=== PATIENT | male | born 1980 | race American Indian/Alaskan Native ===

== ENCOUNTER 2019-08-06 21:52 | Inpatient (IN) | payer OTHER, SELFPAY ==
--- NOTE | 2019-08-06 22:32 | Event Note ---
ED Screening Note Date of service: 08/06/19 Time: 22:30 ED Screening Note: c/o elevated BP due to running out of BP meds x 2.5 weeks denies CP, SOB +BAUMAN This initial assessment/diagnostic orders/clinical plan/treatment(s) is/are subject to change based on patients health status, clinical progression and re- assessment by fellow clinical providers in the ED. Further treatment and workup at subsequent clinical providers discretion. Patient/guardian urged not to elope from the ED as their condition may be serious if not clinically assessed and managed. Initial orders include: home meds
[2019-08-06] MEDS ORDERED: LISINOPRIL 10 MG TAB PO ONE (22:33)
[2019-08-06] MEDS ORDERED: FUROSEMIDE 20 MG TAB PO ONE (22:33)
[2019-08-06] MEDS ORDERED: cloNIDine 0.1 MG TAB PO ONE (22:33)
[2019-08-06] MEDS ORDERED: carvediloL 6.25 MG TAB PO ONE (22:33)
[2019-08-07 00:29] LABS: Basophils # (Auto) 0.1 K/mm3 (0.0-0.1); Basophils % (Auto) 0.8 % (0.0-1.8); Eosinophils # (Auto) 0.2 K/mm3 (0.0-0.4); Eosinophils % (Auto) 1.4 % (0.0-4.3); Hemoglobin 13.9 gm/dl (11.8-15.2); Lymphocytes % (Auto) 23.4 % (13.4-35.0); Mean Corpuscular HGB Conc 34 % (32-34); Mean Corpuscular Volume 86 fl (84-94); Monocytes % (Auto) 7.9 % (0.0-7.3); Platelet Count 158 K/mm3 (140-440); Red Blood Count 4.77 M/mm3 (3.65-5.03); Red Cell Distribution Width 13.7 % (13.2-15.2)
[2019-08-07 00:52] LABS: Calcium 9.3 mg/dL (8.4-10.2)
--- NOTE | 2019-08-07 01:20 | Emergency Department Report ---
ED Headache HPI - General Chief Complaint: High BP Stated Complaint: HIGH BP Time Seen by Provider: 08/06/19 22:29 Source: patient, old records Exam Limitations: no limitations - History of Present Illness Initial Comments: 39-year-old male with a past medical history of hypertension and chronic renal insufficiency presents to the hospital complaining of headache and running out of BP medication. Patient ran out of all his medications the exception of clonidine 2.5 weeks ago due to scheduling issues to see his primary care doctor. Presents to the hospital complaining of 10/10 headache without blurry vision, nausea, vomiting, focal weakness, numbness, or neck pain. He received 1 dose of his scheduled medications in triage and reports his headache is now 3/10 in intensity. Patient has not been here since 2013 as per medical record at that time his kidney function was normal. Patient states he has since been diagnosed with renal insufficiency. His meds include carvedilol, lisinopril, Lasix, Coreg, and vitamin D. Despite being on Lasix 80 mg twice a day patient denies a history of CHF. No chest pain or shortness of breath reported. Allergies/Adverse Reactions: Allergies No Known Allergies Allergy (Unverified 02/19/14 18:08) Home Medications: Ambulatory Orders labetaloL [Labetalol 200mg TAB] 100 mg PO BID #60 tablet 02/20/14 lisinopriL [Zestril TAB] 40 mg PO QDAY #30 tablet 02/20/14 ED Review of Systems ROS: Stated complaint: HIGH BP Other details as noted in HPI Comment: All other systems reviewed and negative ED Past Medical Hx - Past Medical History Previous Medical History?: Yes Hx Hypertension: Yes (Deangelo Malignant HTN) - Surgical History Past Surgical History?: Yes - Social History Smoking Status: Former Smoker - Medications Home Medications: Home Medications Medication Instructions Recorded Confirmed Last Taken Type labetaloL [Labetalol 200mg TAB] 100 mg PO BID #60 tablet 02/20/14 Unknown Rx lisinopriL [Zestril TAB] 40 mg PO QDAY #30 tablet 02/20/14 Unknown Rx ED Physical Exam - General Limitations: No Limitations - Other Other exam information: General: No acute distress Head: Atraumatic Eyes: normal appearance, extraocular movements intact, pupils equal reactive to light ENT: Moist mucous membranes Neck: Normal appearance, no midline tenderness, no nuchal rigidity Chest: Clear to auscultation bilaterally CV: Regular rate and rhythm Abdomen: Soft, normal bowel sounds, nontender, nondistended, no rebound or guarding Back: Normal inspection Extremity: Normal inspection, full range of motion Neuro: Alert O x 3, no facial asymmetry, speech clear, no gross motor sensory deficit, [id number] function intact Psych: Appropriate behavior Skin: No rash ED Course Vital Signs 08/06/19 08/06/19 08/06/19 22:03 22:45 22:46 Temperature 99.0 F Pulse Rate 69 69 69 Respiratory 18 Rate Blood Pressure 249/161 249/161 249/161 Blood Pressure [Left] O2 Sat by Pulse 98 Oximetry 08/07/19 08/07/19 08/07/19 00:45 01:00 01:15 Temperature 97.7 F Pulse Rate 60 58 L 60 Respiratory 19 16 17 Rate Blood Pressure 219/145 220/134 200/133 Blood Pressure 219/45 [Left] O2 Sat by Pulse 95 97 96 Oximetry 08/07/19 08/07/19 08/07/19 01:30 01:45 02:00 Temperature Pulse Rate 53 L 55 L 58 L Respiratory 14 14 14 Rate Blood Pressure 215/131 213/128 193/126 Blood Pressure [Left] O2 Sat by Pulse 97 97 96 Oximetry 08/07/19 08/07/19 08/07/19 02:30 02:48 02:49 Temperature Pulse Rate 58 L 59 L Respiratory 17 18 Rate Blood Pressure 203/134 219/139 Blood Pressure [Left] O2 Sat by Pulse 99 Oximetry 08/07/19 08/07/19 08/07/19 03:00 04:04 04:35 Temperature Pulse Rate 59 L 66 67 Respiratory 14 19 Rate Blood Pressure 183/115 207/133 Blood Pressure 208/132 [Left] O2 Sat by Pulse 99 100 Oximetry ED Medical Decision Making - Lab Data Result diagrams: 08/07/19 00:17 08/07/19 00:17 Lab Results 08/07/19 08/07/19 Range/Units 00:17 00:17 WBC 13.0 H (4.5-11.0) K/mm3 RBC 4.77 (3.65-5.03) M/mm3 Hgb 13.9 (11.8-15.2) gm/dl Hct 41.0 (35.5-45.6) % MCV 86 (84-94) fl MCH 29 (28-32) pg MCHC 34 (32-34) % RDW 13.7 (13.2-15.2) % Plt Count 158 (140-440) K/mm3 Lymph % (Auto) 23.4 (13.4-35.0) % [place] % (Auto) 7.9 H (0.0-7.3) % Eos % (Auto) 1.4 (0.0-4.3) % Baso % (Auto) 0.8 (0.0-1.8) % Lymph # 3.0 (1.2-5.4) K/mm3 [place] # 1.0 H (0.0-0.8) K/mm3 Eos # 0.2 (0.0-0.4) K/mm3 Baso # 0.1 (0.0-0.1) K/mm3 Seg Neutrophils % 66.5 (40.0-70.0) % Seg Neutrophils # 8.6 H (1.8-7.7) K/mm3 Sodium 141 (137-145) mmol/L Potassium 3.8 (3.6-5.0) mmol/L Chloride 101.7 (98-107) mmol/L Carbon Dioxide 26 (22-30) mmol/L Anion Gap 17 mmol/L BUN 25 H (9-20) mg/dL Creatinine 2.4 H (0.8-1.5) mg/dL Estimated GFR 37 ml/min BUN/Creatinine Ratio 10 % Glucose 105 H (75-100) mg/dL Calcium 9.3 (8.4-10.2) mg/dL - Radiology Data Radiology results: report reviewed Examination: CT of the head without contrast Clinical information: Hypertension. Headache. Comparison: None. Technical: Multiple axial CT images of the head were obtained without intravenous contrast. Sagittal and coronal reformats were obtained. All CTs at this facility utilize dose reduction techniques including automated exposure control, iterative reconstruction and weight based dosing when appropriate to reduce patient radiation dose to as low as reasonable achievable. Findings: There is no CT evidence of acute intracranial hemorrhage or large territorial infarct. The ventricular system appears normal in size. No extra-axial fluid collections are identified. Evaluation of the calvarium demonstrates no evidence of acute bony abnormality. There is partial mucosal opacification of the visualized left maxillary sinus. Impression: 1. No CT evidence of acute intracranial process. 2. Partial mucosal opacification of the left maxillary sinus which may suggest sinusitis. - Medical Decision Making Patient was provider or his medications in triage without improvement in his blood pressure (including Lasix 80mg). Patient denies a history of CHF but prescibed a large dose of Lasix twice a day. Patient received additional IV hydralazine with minimal blood pressure improvement. CT head does not show any acute findings. Renal insufficiency noted. Patient states he was told he has renal insufficiency and the past but does not know his baseline kidney function. Last records available for review here or from 2013 which showed normal renal function. Since patient has been in the hospital several hours with poor blood pressure controlled despite by mouth and IV medications he will be admitted to the hospitalist service for further treatment. - Differential Diagnosis hypertensive emergency/urgency Critical Care Time: No Critical care attestation.: If time is entered above; I have spent that time in minutes in the direct care of this critically ill patient, excluding procedure time. ED Disposition Clinical Impression: Hypertensive urgency, Non compliance with medical treatment, Renal insufficiency Disposition: -09 OP ADMIT IP TO THIS HOSP Is pt being admited?: Yes Condition: Stable Time of Disposition: 04:41 (Dr muro/hosp)
[2019-08-07] MEDS ORDERED: hydrALAZINE 20 MG/1 ML INJ IV ONE ×2 (02:08→04:21)
[2019-08-07] MEDS ORDERED: MORPHINE 4 MG/1 ML INJ IV ONE (02:09)
[2019-08-07] MEDS ORDERED: ONDANSETRON 4 MG/2 ML INJ IV ONE (02:09)
--- NOTE | 2019-08-07 02:39 | Cat Scan Report ---
Examination: CT of the head without contrast Clinical information: Hypertension. Headache. Comparison: None. Technical: Multiple axial CT images of the head were obtained without intravenous contrast. Sagittal and coronal reformats were obtained. All CTs at this facility utilize dose reduction techniques inc luding automated exposure control, iterative reconstruction and weight based dosing when appropriate to reduce patient radiation dose to as low as reasonable achievable. Findings: There is no CT evidence of acute intracranial hemorrhage or large territorial infarct. The ventricular system appears normal in size. No extra-axial fluid collections are identified. Evaluation of the calvarium demonstrates no evidence of acute bony abnormality. There is partial muco laure opacification of the visualized left maxillary sinus. Impression: 1. No CT evidence of acute intracranial process. 2. Partial mucosal opacification of the left maxillary sinus which may suggest sinusitis. Signer Name: Sravanthi Hansen MD Signed: 08/07/2019 2:35 AM Workstation Name: [id number]
[2019-08-07] MEDS ORDERED: ONDANSETRON 4 MG/2 ML INJ IV PRN (05:31)
[2019-08-07] MEDS ORDERED: niCARdipine 50 MG in SODIUM CHLORIDE 0.9% 250ML 230 ML IV SCH (05:31)
--- NOTE | 2019-08-07 05:35 | History and Physical Report ---
History of Present Illness Date of admission: 08/07/19 04:41 History of present illness: 39-year-old man with a history of hypertension, chronic kidney disease comes emergency room complaining of headache, occipital, dull, constant, intensity 5- 10, no radiation, cannot identify exacerbating or relieving factors. He checked his blood pressure at home and the machine was reading high, he could not get a reading. He came to the emergency room for further evaluation. States that he has been out of his medication over the last 2 weeks, he was unable to get it refilled because he could not get an appointment with his primary care physician's office. Patient is being admitted for hypertensive urgency Review Of Systems: Constitutional: no weight loss, chills, fever Ears, eyes, nose, mouth and throat: no nasal congestion, no nasal discharge, no sinus pressure, blurry vision, diplopia Neck: No neck pain or rigidity. Cardiovascular: No palpitations, chest pain Respiratory: No cough, shortness of breath Gastrointestinal: No hematochezia, abdominal pain Genitourinary : no dysuria, frequency , hematuria Musculoskeletal: no muscle ache , joint pain Integumentary: no rash, no pruritis Neurological: no parathesias, focal weakness Endocrine: no cold or heat intolerance, no polyuria or polydipsia Hematologic/Lymphatic: no easy bruising, no easy bleeding, no gland swelling Allergic/Immunologic: no urticaria, no angioedema. PAST MEDICAL HISTORY:hypertension, CKD PAST SURGICAL HISTORY:None FAMILY HISTORY:hypertension, diabetes SOCIAL HISTORY: no tobacco, no drugs, alcohol Medications and Allergies Allergies Allergy/AdvReac Type Severity Reaction Status Date / Time No Known Allergies Allergy Unverified 02/19/14 18:08 Home Medications Medication Instructions Recorded Confirmed Last Taken Type labetaloL [Labetalol 200mg TAB] 100 mg PO BID #60 tablet 02/20/14 Unknown Rx lisinopriL [Zestril TAB] 40 mg PO QDAY #30 tablet 02/20/14 Unknown Rx Active Meds: Active Medications Nicardipine HCl 50 mg/ Sodium (Chloride) 250 mls @ 25 mls/hr IV TITR GERBER; Protocol Exam - Physical Exam Narrative exam: Gen. appearance: Patient lying in bed, no apparent distress HEENT: Normocephalic, atraumatic, pupils equally round and reactive to light, extraocular movement intact, and no sclericterus,. No JVD or thyromegaly or nodule,neck supple, no carotid bruit ,mucous membranes moist, no exudate or erythema Heart: S1, S2, regular rate and rhythm Lungs: Clear to auscultation bilaterally, breathing comfortable Abdomen: Positive bowel sounds, nontender, nondistended, no organomegaly Extremity: No edema, cyanosis, clubbing Skin: No rash, nodules, warm, dry Neuro: Oriented 3, cranial nerves II-12 intact, speech is fluent, motor and sensory intact - Constitutional Vitals: Temp Pulse Resp BP Pulse Ox 97.7 F 67 19 207/133 100 08/07/19 00:45 08/07/19 04:35 08/07/19 04:04 08/07/19 04:35 08/07/19 04:04 Results - Labs CBC & Chem 7: 08/07/19 00:17 08/07/19 00:17 Labs: Abnormal lab results 08/07/19 08/07/19 Range/Units 00:17 00:17 WBC 13.0 H (4.5-11.0) K/mm3 [place] % (Auto) 7.9 H (0.0-7.3) % Page # 1.0 H (0.0-0.8) K/mm3 Seg Neutrophils # 8.6 H (1.8-7.7) K/mm3 BUN 25 H (9-20) mg/dL Creatinine 2.4 H (0.8-1.5) mg/dL Glucose 105 H (75-100) mg/dL - Imaging and Cardiology CT Scan - head: report reviewed Assessment and Plan Assessment Hypertensive urgency Blood pressure has been unresponsive to IV medications Start Cardene drip Consult critical care Chronic kidney disease Stable DVT prophylaxis
[2019-08-07] MEDS ORDERED: amLODIPine 10 MG TAB PO ONE (06:11)
[2019-08-07] MEDS ORDERED: amLODIPine 10 MG TAB ONE (06:16)
[2019-08-07] MEDS ORDERED: hydrALAZINE 20 MG/1 ML INJ IV PRN (06:29)
[2019-08-07] MEDS ORDERED: ENOXAPARIN 30 MG/0.3 ML INJ SUB-Q ONE (09:41)
--- NOTE | 2019-08-07 09:56 | Event Note ---
Date: 08/07/19 Admitted this morning for uncontrolled hypertension RN has called me twice regarding downgrading patient because he is only on 5mg/hr Cardene iv drip and bp steady. I ordered UDS, stopped drip, ordered oral imdur and hydralazine po and IV (not indu/arb due to renal dysfunction), ordered iv prn labetalol and he has received catapress and norvasc already.
[2019-08-07] MEDS: hydrALAZINE 25 MG TAB PO SCH ×3 (10:04→21:25)
[2019-08-07] MEDS: ENOXAPARIN 30 MG/0.3 ML INJ SUB-Q SCH (10:04)
[2019-08-07 10:21] LABS: Amphetamine Screen,Urine PRESUMPTIVE NEGATIVE; Benzodiazepines Screen,Urine PRESUMPTIVE NEGATIVE; Cocaine Screen,Urine PRESUMPTIVE NEGATIVE; Methadone Screen,Urine PRESUMPTIVE NEGATIVE
[2019-08-07 10:44] LABS: Cannabinoid Screen,Urine PRESUMPTIVE POSITIVE; Opiate Screen,Urine PRESUMPTIVE POSITIVE
[2019-08-07] MEDS: hydrALAZINE 20 MG/1 ML INJ IV PRN (11:04)
[2019-08-07] MEDS: ACETAMINOPHEN 325 MG TAB PO PRN ×2 (12:31→21:27)
[2019-08-08] MEDS: hydrALAZINE 20 MG/1 ML INJ IV PRN ×2 (04:59→11:49)
[2019-08-08 05:58] LABS: Basophils # (Auto) 0.1 K/mm3 (0.0-0.1); Basophils % (Auto) 0.5 % (0.0-1.8); Eosinophils % (Auto) 0.1 % (0.0-4.3); Hematocrit 44.2 % (35.5-45.6); Hemoglobin 15.1 gm/dl (11.8-15.2); Lymphocytes # (Auto) 2.7 K/mm3 (1.2-5.4); Lymphocytes % (Auto) 15.2 % (13.4-35.0); Mean Corpuscular HGB Conc 34 % (32-34); Mean Corpuscular Volume 84 fl (84-94); Monocytes % (Auto) 5.7 % (0.0-7.3); Platelet Count 199 K/mm3 (140-440); Red Blood Count 5.28 M/mm3 (3.65-5.03); Red Cell Distribution Width 14.2 % (13.2-15.2)
[2019-08-08] MEDS: ACETAMINOPHEN 325 MG TAB PO PRN ×2 (06:15→11:47)
[2019-08-08] MEDS: hydrALAZINE 25 MG TAB PO SCH ×4 (06:16→21:32)
[2019-08-08 06:23] LABS: Calcium 9.5 mg/dL (8.4-10.2)
[2019-08-08] MEDS: ENOXAPARIN 30 MG/0.3 ML INJ SUB-Q SCH (09:21)
[2019-08-08] MEDS: amLODIPine 10 MG TAB PO SCH (10:03)
--- NOTE | 2019-08-08 14:35 | Progress Note ---
Assessment and Plan Assessment and plan: Patient is a 39-year-old man with a history of hypertension, chronic kidney disease stage 3 who presented to [facility] ED with headaches/n/v. He has been out of medication for last 2-3 weeks. Malignant Hypertension: treated with IV Cardene, adjust medication, he was out of his labetalol. He is on clonidine also Intractable N/V: consult GI, treat with iv zofran and iv reglan Hypokalemia: replete cautiously due to ARF ARF/CKD 3, vasomotor nephropathy, poa: consult Nephrology DVT prophylaxis: SCD only, bp too high at the moment History Interval history: Patient was seen and examined. Follow-up on current diagnosis. Overnight uneventful as no events directly reported to me. Patient denies any chest pain, shortness breath, nausea/vomiting or severe headaches. Imaging, nursing note, chart, labs and old chart reviewed. Discussed with patient. Gen: WDWN, NAD, Awake, Alert, Orientated HEENT: NCAT, EOMI, PERRL, OP Clear Neck: supple, no adenopathy, no thyromegaly, no JVD CVS/Heart: RRR, normal S1S2, pulses present bilaterally Chest/Lungs: CTA B, Symmetrical chest expansion, good air entry bilaterally GI/Abdomen: soft, NTND, good bowel sounds, no guarding or rebound /Bladder: no suprapubic tenderness, no CVA or paraspinal tenderness Extermity/Skin: no c/c/e, no obvious rash MSK: FROM x 4 Neuro: CN 2-12 grossly intact, no new focal deficits Psych: calm Hospitalist Physical - Constitutional Vitals: Temp Pulse Resp BP Pulse Ox 98.9 F 73 20 220/157 99 08/08/19 11:22 08/08/19 11:57 08/08/19 11:22 08/08/19 11:57 08/08/19 11:22 Results - Labs CBC & Chem 7: 08/08/19 05:30 08/08/19 05:30 Labs: Laboratory Last Values WBC 17.8 K/mm3 (4.5-11.0) H 08/08/19 05:30 RBC 5.28 M/mm3 (3.65-5.03) H 08/08/19 05:30 Hgb 15.1 gm/dl (11.8-15.2) 08/08/19 05:30 Hct 44.2 % (35.5-45.6) 08/08/19 05:30 MCV 84 fl (84-94) 08/08/19 05:30 MCH 29 pg (28-32) 08/08/19 05:30 MCHC 34 % (32-34) 08/08/19 05:30 RDW 14.2 % (13.2-15.2) 08/08/19 05:30 Plt Count 199 K/mm3 (140-440) 08/08/19 05:30 Lymph % (Auto) 15.2 % (13.4-35.0) 08/08/19 05:30 [place] % (Auto) 5.7 % (0.0-7.3) 08/08/19 05:30 Eos % (Auto) 0.1 % (0.0-4.3) 08/08/19 05:30 Baso % (Auto) 0.5 % (0.0-1.8) 08/08/19 05:30 Lymph # 2.7 K/mm3 (1.2-5.4) 08/08/19 05:30 [place] # 1.0 K/mm3 (0.0-0.8) H 08/08/19 05:30 Eos # 0.0 K/mm3 (0.0-0.4) 08/08/19 05:30 Baso # 0.1 K/mm3 (0.0-0.1) 08/08/19 05:30 Seg Neutrophils % 78.5 % (40.0-70.0) H 08/08/19 05:30 Seg Neutrophils # 14.0 K/mm3 (1.8-7.7) H 08/08/19 05:30 Sodium 140 mmol/L (137-145) 08/08/19 05:30 Potassium 3.2 mmol/L (3.6-5.0) L 08/08/19 05:30 Chloride 100.1 mmol/L (98-107) 08/08/19 05:30 Carbon Dioxide 19 mmol/L (22-30) L D 08/08/19 05:30 Anion Gap 24 mmol/L 08/08/19 05:30 BUN 26 mg/dL (9-20) H 08/08/19 05:30 Creatinine 2.8 mg/dL (0.8-1.5) H 08/08/19 05:30 Estimated GFR 31 ml/min 08/08/19 05:30 BUN/Creatinine Ratio 9 % 08/08/19 05:30 Glucose 113 mg/dL (75-100) H 08/08/19 05:30 Calcium 9.5 mg/dL (8.4-10.2) 08/08/19 05:30 Urine Opiates Screen Presumptive positive 08/07/19 10:06 Urine Methadone Screen Presumptive negative 08/07/19 10:06 Ur Barbiturates Screen Presumptive negative 08/07/19 10:06 Ur Phencyclidine Scrn Presumptive negative 08/07/19 10:06 Ur Amphetamines Screen Presumptive negative 08/07/19 10:06 U Benzodiazepines Scrn Presumptive negative 08/07/19 10:06 Urine Cocaine Screen Presumptive negative 08/07/19 10:06 U Marijuana (THC) Screen Presumptive positive 08/07/19 10:06 Drugs of Abuse Note Disclamer 08/07/19 10:06 Active Medications - Current Medications Current Medications: Generic Name Dose Route Start Last Admin Trade Name Freq PRN Reason Stop Dose Admin Acetaminophen 650 mg 08/07/19 05:31 08/08/19 11:47 Tylenol PO 650 mg Q4H PRN Administration Pain MILD(1-3)/Fever >100.5/BAUMAN Amlodipine Besylate 10 mg 08/08/19 10:00 08/08/19 10:03 Amlodipine PO 10 mg QDAY GERBER Administration Enoxaparin Sodium 30 mg 08/07/19 10:00 08/08/19 09:21 Enoxaparin SUB-Q Not Given QDAY GERBER Hydralazine HCl 10 mg 08/07/19 09:51 08/08/19 11:49 Apresoline IV 10 mg Q4HR PRN Administration Blood Pressure Hydralazine HCl 25 mg 08/07/19 10:00 08/08/19 06:16 Apresoline PO 25 mg Q8HR GERBER Administration Isosorbide Mononitrate 30 mg 08/07/19 12:00 08/08/19 10:01 Imdur PO 30 mg QDAY GERBER Administration Labetalol HCl 100 mg 08/07/19 10:00 08/08/19 10:03 Labetalol PO 100 mg BID GERBER Administration Labetalol HCl 10 mg 08/07/19 09:51 08/08/19 11:57 Labetalol IV 10 mg Q4H PRN Administration Blood Pressure Ondansetron HCl 4 mg 08/07/19 05:31 Zofran IV Q8H PRN Nausea And Vomiting Sodium Chloride 10 ml 08/07/19 10:00 08/08/19 12:00 Sodium Chloride Flush Syringe 10 Ml IV 10 ml BID GERBER Administration Sodium Chloride 10 ml 08/07/19 05:31 Sodium Chloride Flush Syringe 10 Ml IV PRN PRN LINE FLUSH
[2019-08-08] MEDS ORDERED: cloNIDine TTS 0.2 MG/24 HR PATCH TD SCH (14:45)
[2019-08-08] MEDS ORDERED: METOCLOPRAMIDE 10 MG/2 ML INJ IV PRN (14:45)
--- NOTE | 2019-08-08 16:39 | XRay Report ---
CHEST 1 VIEW 08/08/2019 3:09 PM INDICATION / CLINICAL INFORMATION: cough. COMPARISON: 02/19/14 FINDINGS: SUPPORT DEVICES: None. HEART / MEDIASTINUM: No significant abnormality. LUNGS / PLEURA: No significant pulmonary or pleural abnormality. No pneumothorax. ADDITIONAL FINDINGS: No significant additional findings. IMPRESSION: 1. No acute findings. No change. Signer Name: Tone Pablo MD Signed: 08/08/2019 4:34 PM Workstation Name: [id number]
[2019-08-08] MEDS: SPIRONOLACTONE 25 MG TAB PO SCH (16:47)
[2019-08-08] MEDS: cloNIDine 0.1 MG TAB PO SCH ×2 (16:47→22:10)
[2019-08-08] MEDS: PANTOPRAZOLE 40 MG INJ IV SCH (16:48)
[2019-08-08 18:48] LABS: Bilirubin,Urine NEG (Negative); Blood,Urine MOD (Negative); Color,Urine Yellow (Yellow); Urobilinogen,Urine < 2.0 mg/dL (<2.0); WBC,Urine < 1.0 /HPF (0.0-6.0)
[2019-08-08] MEDS: oxyCODONE /ACETAMINOPHEN 5-325MG TAB PO PRN (22:18)
[2019-08-09] MEDS: hydrALAZINE 25 MG TAB PO SCH ×3 (06:03→21:46)
[2019-08-09] MEDS: oxyCODONE /ACETAMINOPHEN 5-325MG TAB PO PRN ×2 (08:13→20:13)
[2019-08-09] MEDS: hydrALAZINE 20 MG/1 ML INJ IV PRN (08:14)
--- NOTE | 2019-08-09 08:28 | Consultation ---
History of Present Illness - History of Present Illness Thank you for the consultation ! My assessment and plan are as follows: Renal failure in a patient who has been admitted here with uncontrolled hypertension creatinine yesterday was 2.4 which is currently 2.8 remotely creatinine was 1.1 in January 2014, Hypokalemia in the setting of renal failure uncontrolled hypertension quite likely patient does have secondary hypertension Leukocytosis of unclear etiology currently worse? Stress response needs follow- up advised to see primary physician in outpatient setting Proteinuria approximately 100 mg a random specimen likely from uncontrolled hypertension Incidentally patient has also been noted to have hematuria Will order for v asculitic workup, renal ultrasonogram Patient has history of poorly controlled hypertension which is worrisome, he is at risk for progression of renal failure, Discussed about blood pressure control goal systolic blood pressure 130 diastolic 80, significant changes in diet and lifestyle are needed, he needs to monitor his blood pressure from home and bring these readings in the office for review Needs to be worked up for secondary hypertension, will order for plasma renin as well as aldosterone level, Discussed about renal diet, diet and lifestyle changes to be maintained Patient has been adequately counseled and educated regarding all the renal related issues and renal care plan was discussed with patient at length Patient was advised to make an appointment upon discharge, for follow-up in the office Renal prognosis remains guarded at this time We'll continue to follow and make recommendation from renal standpoint If you have any questions please feel free to contact me at [phone] Donato Metcalf M.D. [facility], [address] [place] [address] History of presenting illness Patient is a 39-year-old male who has been admitted here with severe headache he was also out of his medication, patient does have history of chronic kidney disease, as headache did markedly improve after he was given medication for blood pressure,he does not remember his baseline creatinine Patient denies taking any follow-up nonsteroidal drug, no history of any hepatitis B C or HIV, Past medical history significant for Long-standing history of hypertension, poorly controlled Chronic kidney disease Current allergies: None Home medication present medication: Reviewed Social history/family history: Reviewed Review of system positive for headache, patient was out of his medication, he feeling much better Other review of system negative Physical examination: General: No acute distress HEENT: Oral mucosa moist no icterus, no facial swelling Neck: Supple no thyromegaly no lymphadenopathy no JVD Chest: Clear to auscultation no crackles rales or wheezes Heart: Regular rate and rhythm S1-S2 heard no S3-S4 Abdomen: Soft nontender no organomegaly no masses palpable no renal bruit no suprapubic masses no CVA tenderness Dermatology: No petechial skin rashes noted Extremity: Less than 1+ peripheral edema, dry skin Musculoskeletal: No joint effusion noted in knee and ankle area Psych: No evidence of agitation and aggression noted Neurological: Alert awake follows commands no tremors no myoclonus Back: No CVA tenderness Medications and Allergies Allergies Allergy/AdvReac Type Severity Reaction Status Date / Time No Known Allergies Allergy Unverified 02/19/14 18:08 Home Medications Medication Instructions Recorded Confirmed Last Taken Type labetaloL [Labetalol 200mg TAB] 100 mg PO BID #60 tablet 02/20/14 08/07/19 Unknown Rx lisinopriL [Zestril TAB] 40 mg PO QDAY #30 tablet 02/20/14 08/07/19 Unknown Rx Cholecalciferol (Vitamin D3) 50,000 unit PO 1XW 08/07/19 08/07/19 Unknown History [Vitamin D3 50,000UNIT CAP] Furosemide [Lasix TAB] 80 mg PO BID 08/07/19 08/07/19 Unknown History carvediloL [Coreg] 25 mg PO BID 08/07/19 08/07/19 Unknown History cloNIDine [Catapres] 0.2 mg PO TID 08/07/19 08/07/19 Unknown History Active Meds: Active Medications Acetaminophen (Tylenol) 650 mg PO Q4H PRN PRN Reason: Pain MILD(1-3)/Fever >100.5/BAUMAN Last Admin: 08/08/19 11:47 Dose: 650 mg Documented by: Amlodipine Besylate (Amlodipine) 10 mg PO QDAY [facility] Last Admin: 08/08/19 10:03 Dose: 10 mg Documented by: Clonidine HCl (Catapres-Tts Patch) 0.2 mg TD QWEEK [facility] Last Admin: 08/08/19 18:24 Dose: 0.2 mg Documented by: Clonidine HCl (Catapres) 0.1 mg PO Q12HR [facility] Last Admin: 08/08/19 22:10 Dose: 0.1 mg Documented by: Hydralazine HCl (Apresoline) 10 mg IV Q4HR PRN PRN Reason: Blood Pressure Last Admin: 08/09/19 08:14 Dose: 10 mg Documented by: Hydralazine HCl (Apresoline) 25 mg PO Q8HR [facility] Last Admin: 08/09/19 06:03 Dose: 25 mg Documented by: Labetalol HCl (Labetalol) 100 mg PO BID [facility] Last Admin: 08/08/19 21:32 Dose: 100 mg Documented by: Labetalol HCl (Labetalol) 10 mg IV Q4H PRN PRN Reason: Blood Pressure Last Admin: 08/09/19 06:04 Dose: 10 mg Documented by: Metoclopramide HCl (Reglan) 10 mg IV Q8H PRN PRN Reason: Nausea And Vomiting Ondansetron HCl (Zofran) 4 mg IV Q8H PRN PRN Reason: Nausea And Vomiting Oxycodone/Acetaminophen (Percocet 5/325) 1 tab PO Q6H PRN PRN Reason: Pain, Moderate (4-6) Last Admin: 08/09/19 08:13 Dose: 1 tab Documented by: Pantoprazole Sodium (Protonix) 40 mg IV QDAY [facility] Last Admin: 08/08/19 16:48 Dose: 40 mg Documented by: Sodium Chloride (Sodium Chloride Flush Syringe 10 Ml) 10 ml IV BID [facility] Last Admin: 08/08/19 22:12 Dose: 10 ml Documented by: Sodium Chloride (Sodium Chloride Flush Syringe 10 Ml) 10 ml IV PRN PRN PRN Reason: LINE FLUSH Spironolactone (Aldactone) 25 mg PO QDAY [facility] Last Admin: 08/08/19 16:47 Dose: 25 mg Documented by: Exam - Vital Signs Vital signs: Vital Signs Temp Pulse Resp BP Pulse Ox 99.0 F 69 18 249/161 98 08/06/19 22:03 08/06/19 22:03 08/06/19 22:03 08/06/19 22:03 08/06/19 22:03 Results - Lab Results 08/08/19 05:30 08/08/19 05:30 Most recent lab results Calcium 9.5 mg/dL (8.4-10.2) 08/08/19 05:30
[2019-08-09] MEDS: PANTOPRAZOLE 40 MG INJ IV SCH (09:19)
[2019-08-09] MEDS: amLODIPine 10 MG TAB PO SCH (09:19)
[2019-08-09] MEDS: SPIRONOLACTONE 25 MG TAB PO SCH (09:20)
[2019-08-09] MEDS: cloNIDine 0.1 MG TAB PO SCH ×2 (09:20→21:45)
[2019-08-09] MEDS ORDERED: hydrALAZINE 20 MG/1 ML INJ IV PRN (10:54)
--- NOTE | 2019-08-09 10:55 | Progress Note ---
Assessment and Plan Assessment and plan: also check UA Addendum entered and electronically signed by KEVIN THOMPSON MD 08/08/19 1 4:40: ?Reason for Leukocytosis: get CXR, blood cultures Original Note: Assessment and Plan Assessment and plan: Patient is a 39-year-old man with a history of hypertension, chronic kidney disease stage 3 who presented to [facility] ED with headaches/n/v. He has been out of medication for last 2-3 weeks. Malignant Hypertension: treated with IV Cardene, adjust medication, he was out of his labetalol. He is on clonidine also Intractable N/V: consult GI, treat with iv zofran and iv reglan Hypokalemia: replete cautiously due to ARF ARF/CKD 3, vasomotor nephropathy, poa: consult Nephrology DVT prophylaxis: SCD only, bp too high at the moment Hospitalist Physical - Constitutional Vitals: Temp Pulse Resp BP Pulse Ox 98.6 F 71 20 215/133 95 08/09/19 09:02 08/09/19 09:19 08/09/19 09:02 08/09/19 09:19 08/09/19 09:02 Results - Labs CBC & Chem 7: 08/08/19 05:30 08/08/19 05:30 Labs: Laboratory Last Values WBC 17.8 K/mm3 (4.5-11.0) H 08/08/19 05:30 RBC 5.28 M/mm3 (3.65-5.03) H 08/08/19 05:30 Hgb 15.1 gm/dl (11.8-15.2) 08/08/19 05:30 Hct 44.2 % (35.5-45.6) 08/08/19 05:30 MCV 84 fl (84-94) 08/08/19 05:30 MCH 29 pg (28-32) 08/08/19 05:30 MCHC 34 % (32-34) 08/08/19 05:30 RDW 14.2 % (13.2-15.2) 08/08/19 05:30 Plt Count 199 K/mm3 (140-440) 08/08/19 05:30 Lymph % (Auto) 15.2 % (13.4-35.0) 08/08/19 05:30 [place] % (Auto) 5.7 % (0.0-7.3) 08/08/19 05:30 Eos % (Auto) 0.1 % (0.0-4.3) 08/08/19 05:30 Baso % (Auto) 0.5 % (0.0-1.8) 08/08/19 05:30 Lymph # 2.7 K/mm3 (1.2-5.4) 08/08/19 05:30 Ware # 1.0 K/mm3 (0.0-0.8) H 08/08/19 05:30 Eos # 0.0 K/mm3 (0.0-0.4) 08/08/19 05:30 Baso # 0.1 K/mm3 (0.0-0.1) 08/08/19 05:30 Seg Neutrophils % 78.5 % (40.0-70.0) H 08/08/19 05:30 Seg Neutrophils # 14.0 K/mm3 (1.8-7.7) H 08/08/19 05:30 Sodium 140 mmol/L (137-145) 08/08/19 05:30 Potassium 3.2 mmol/L (3.6-5.0) L 08/08/19 05:30 Chloride 100.1 mmol/L (98-107) 08/08/19 05:30 Carbon Dioxide 19 mmol/L (22-30) L D 08/08/19 05:30 Anion Gap 24 mmol/L 08/08/19 05:30 BUN 26 mg/dL (9-20) H 08/08/19 05:30 Creatinine 2.8 mg/dL (0.8-1.5) H 08/08/19 05:30 Estimated GFR 31 ml/min 08/08/19 05:30 BUN/Creatinine Ratio 9 % 08/08/19 05:30 Glucose 113 mg/dL (75-100) H 08/08/19 05:30 Calcium 9.5 mg/dL (8.4-10.2) 08/08/19 05:30 Urine Color Yellow (Yellow) 08/08/19 17:30 Urine Turbidity Clear (Clear) 08/08/19 17:30 Urine pH 7.0 (5.0-7.0) 08/08/19 17:30 Ur Specific [place] 1.012 (1.003-1.030) 08/08/19 17:30 Urine Protein 100 mg/dl mg/dL (Negative) 08/08/19 17:30 Urine Glucose (UA) Neg mg/dL (Negative) 08/08/19 17:30 Urine Ketones Tr mg/dL (Negative) 08/08/19 17:30 Urine Blood Mod (Negative) 08/08/19 17:30 Urine Nitrite Neg (Negative) 08/08/19 17:30 Urine Bilirubin Neg (Negative) 08/08/19 17:30 Urine Urobilinogen < 2.0 mg/dL (<2.0) 08/08/19 17:30 Ur Leukocyte Esterase Neg (Negative) 08/08/19 17:30 Urine WBC (Auto) < 1.0 /HPF (0.0-6.0) 08/08/19 17:30 Urine RBC (Auto) 14.0 /HPF (0.0-6.0) 08/08/19 17:30 U Epithel Cells (Auto) < 1.0 /HPF (0-13.0) 08/08/19 17:30 Urine Opiates Screen Presumptive positive 08/07/19 10:06 Urine Methadone Screen Presumptive negative 08/07/19 10:06 Ur Barbiturates Screen Presumptive negative 08/07/19 10:06 Ur Phencyclidine Scrn Presumptive negative 08/07/19 10:06 Ur Amphetamines Screen Presumptive negative 08/07/19 10:06 U Benzodiazepines Scrn Presumptive negative 08/07/19 10:06 Urine Cocaine Screen Presumptive negative 08/07/19 10:06 U Marijuana (THC) Screen Presumptive positive 08/07/19 10:06 Drugs of Abuse Note Disclamer 08/07/19 10:06 Active Medications - Current Medications Current Medications: Generic Name Dose Route Start Last Admin Trade Name Freq PRN Reason Stop Dose Admin Acetaminophen 650 mg 08/07/19 05:31 08/08/19 11:47 Tylenol PO 650 mg Q4H PRN Administration Pain MILD(1-3)/Fever >100.5/BAUMAN Clonidine HCl 0.3 mg 08/09/19 22:00 Catapres PO Q12HR [facility] Clonidine HCl 0.2 mg 08/09/19 11:00 Catapres PO 08/09/19 11:01 ONCE ONE Hydralazine HCl 50 mg 08/09/19 10:54 Apresoline PO Q8HR [facility] Hydralazine HCl 10 mg 08/09/19 10:54 Apresoline IV Q4HR PRN bP > 160/100 Labetalol HCl 100 mg 08/07/19 10:00 08/09/19 09:20 Labetalol PO 100 mg BID [facility] Administration Labetalol HCl 10 mg 08/07/19 09:51 08/09/19 06:04 Labetalol IV 10 mg Q4H PRN Administration Blood Pressure Metoclopramide HCl 5 mg 08/09/19 11:00 Reglan IV Q8H PRN Nausea And Vomiting Nifedipine 90 mg 08/09/19 22:00 Procardia Xl PO Q12HR [facility] Ondansetron HCl 4 mg 08/07/19 05:31 Zofran IV Q8H PRN Nausea And Vomiting Oxycodone/Acetaminophen 1 tab 08/08/19 22:09 08/09/19 08:13 Percocet 5/325 PO 1 tab Q6H PRN Administration Pain, Moderate (4-6) Pantoprazole Sodium 40 mg 08/08/19 15:00 08/09/19 09:19 Protonix IV 40 mg QDAY [facility] Administration Sodium Chloride 10 ml 08/07/19 10:00 08/09/19 09:20 Sodium Chloride Flush Syringe 10 Ml IV 10 ml BID [facility] Administration Sodium Chloride 10 ml 08/07/19 05:31 Sodium Chloride Flush Syringe 10 Ml IV PRN PRN LINE FLUSH
[2019-08-09] MEDS ORDERED: METOCLOPRAMIDE 10 MG/2 ML INJ IV PRN (11:00)
[2019-08-09] MEDS ORDERED: cloNIDine 0.2 MG TAB PO ONE (11:00)
[2019-08-09 11:16] LABS: Hematocrit 44.4 % (35.5-45.6); Hemoglobin 14.8 gm/dl (11.8-15.2); Mean Corpuscular HGB Conc 33 % (32-34); Mean Corpuscular Volume 85 fl (84-94); Platelet Count 213 K/mm3 (140-440); Red Blood Count 5.25 M/mm3 (3.65-5.03); Red Cell Distribution Width 14.7 % (13.2-15.2)
--- NOTE | 2019-08-09 11:28 | Gastroenterology Consultation ---
<RENA BRISCOE - Last Filed: 08/09/19 12:11> History of Present Illness - Reason for Consult Consult date: 08/09/19 vomiting Requesting physician: KEVIN THOMPSON - History of Present Illness Patient is a 39 y/o male with PMH of HTN and CKD who presented to ED with c/o headache after running out of BP medication and was admitted for hypertensive urgency. GI has been consulted for vomiting. This morning patient was resting in bed w/o acute distress. Reports being given Morphine while in ER with an episode of vomiting following administration of medication with non-blood emesis. Had no N/V while at home prior to hospitalization and has had no further episodes of vomiting overnight or this am. Currently w/o GI complaints. Denies wt loss, CP, SOB, abd pain, signs of bleeding, or LGI symptoms. No hx of PUD or prior EGD. Currently tolerating cardiac diet. Past History Past Medical History: other (see HPI) Past Surgical History: No surgical history Social history: other (jailyn). denies: smoking, alcohol abuse Family history: diabetes, hypertension Medications and Allergies Allergies Allergy/AdvReac Type Severity Reaction Status Date / Time No Known Allergies Allergy Unverified 02/19/14 18:08 Home Medications Medication Instructions Recorded Confirmed Last Taken Type labetaloL [Labetalol 200mg TAB] 100 mg PO BID #60 tablet 02/20/14 08/07/19 Unknown Rx lisinopriL [Zestril TAB] 40 mg PO QDAY #30 tablet 02/20/14 08/07/19 Unknown Rx Cholecalciferol (Vitamin D3) 50,000 unit PO 1XW 08/07/19 08/07/19 Unknown History [Vitamin D3 50,000UNIT CAP] Furosemide [Lasix TAB] 80 mg PO BID 08/07/19 08/07/19 Unknown History carvediloL [Coreg] 25 mg PO BID 08/07/19 08/07/19 Unknown History cloNIDine [Catapres] 0.2 mg PO TID 08/07/19 08/07/19 Unknown History Active Meds: Active Medications Acetaminophen (Tylenol) 650 mg PO Q4H PRN PRN Reason: Pain MILD(1-3)/Fever >100.5/BAUMAN Last Admin: 08/08/19 11:47 Dose: 650 mg Documented by: Clonidine HCl (Catapres) 0.3 mg PO Q12HR [facility] Hydralazine HCl (Apresoline) 50 mg PO Q8HR [facility] Hydralazine HCl (Apresoline) 10 mg IV Q4HR PRN PRN Reason: bP > 160/100 Labetalol HCl (Labetalol) 100 mg PO BID [facility] Last Admin: 08/09/19 09:20 Dose: 100 mg Documented by: Labetalol HCl (Labetalol) 10 mg IV Q4H PRN PRN Reason: Blood Pressure Last Admin: 08/09/19 06:04 Dose: 10 mg Documented by: Metoclopramide HCl (Reglan) 5 mg IV Q8H PRN PRN Reason: Nausea And Vomiting Nifedipine (Procardia Xl) 90 mg PO Q12HR [facility] Ondansetron HCl (Zofran) 4 mg IV Q8H PRN PRN Reason: Nausea And Vomiting Oxycodone/Acetaminophen (Percocet 5/325) 1 tab PO Q6H PRN PRN Reason: Pain, Moderate (4-6) Last Admin: 08/09/19 08:13 Dose: 1 tab Documented by: Pantoprazole Sodium (Protonix) 40 mg IV QDAY [facility] Last Admin: 08/09/19 09:19 Dose: 40 mg Documented by: Sodium Chloride (Sodium Chloride Flush Syringe 10 Ml) 10 ml IV BID [facility] Last Admin: 08/09/19 09:20 Dose: 10 ml Documented by: Sodium Chloride (Sodium Chloride Flush Syringe 10 Ml) 10 ml IV PRN PRN PRN Reason: LINE FLUSH medications reviewed/updated as required Review of Systems - Review of Systems Gastrointestinal: vomiting, no abdominal pain Exam - Constitutional Vital Signs: Temp Pulse Resp BP Pulse Ox 98.6 F 71 20 215/133 95 08/09/19 09:02 08/09/19 09:19 08/09/19 09:02 08/09/19 09:19 08/09/19 10:00 General appearance: no acute distress - EENT Eyes: PERRL, EOM intact ENT: hearing intact - Respiratory Respiratory effort: normal Respiratory: bilateral: CTA - Cardiovascular Rhythm: regular - Gastrointestinal General gastrointestinal: Present: soft, non-tender, non-distended, normal bowel sounds - Integumentary Integumentary: Present: warm, dry - Neurologic Neurological: alert and oriented x3 - Labs CBC & Chem 7: 08/09/19 10:19 08/09/19 10:19 Lab Results: Laboratory Results - last 24 hr 08/08/19 08/09/19 17:30 10:19 WBC 17.6 H RBC 5.25 H Hgb 14.8 Hct 44.4 MCV 85 MCH 28 MCHC 33 RDW 14.7 Plt Count 213 Urine Color Yellow Urine Turbidity Clear Urine pH 7.[address] [employer] 1.012 Urine Protein 100 mg/dl Urine Glucose (UA) Neg Urine Ketones Tr Urine Blood Mod Urine Nitrite Neg Urine Bilirubin Neg Urine Urobilinogen < 2.0 Ur Leukocyte Esterase Neg Urine WBC (Auto) < 1.0 Urine RBC (Auto) 14.0 U Epithel Cells (Auto) < 1.0 Assessment and Plan 1.vomiting -etiology-likely medication/narcotic induced given hx vs 2/2 degree of HTN vs hyperemesis from marijuana (substance cessation discussed w/ pt) vs other -clinically, patient is currently w/o GI complaints with vomiting now resolved. Denies abd pain. -Tolerating diet -no plan for scope at this time -continue PPI and supportive care with antiemetics -will sign off, please call back if needed <VA EL - Last Filed: 08/09/19 14:00> Medications and Allergies Active Meds: Active Medications Acetaminophen (Tylenol) 650 mg PO Q4H PRN PRN Reason: Pain MILD(1-3)/Fever >100.5/BAUMAN Last Admin: 08/08/19 11:47 Dose: 650 mg Documented by: Clonidine HCl (Catapres) 0.3 mg PO Q12HR [facility] Hydralazine HCl (Apresoline) 50 mg PO Q8HR [facility] Hydralazine HCl (Apresoline) 10 mg IV Q4HR PRN PRN Reason: bP > 160/100 Labetalol HCl (Labetalol) 100 mg PO BID [facility] Last Admin: 08/09/19 09:20 Dose: 100 mg Documented by: Labetalol HCl (Labetalol) 10 mg IV Q4H PRN PRN Reason: Blood Pressure Last Admin: 08/09/19 06:04 Dose: 10 mg Documented by: Metoclopramide HCl (Reglan) 5 mg IV Q8H PRN PRN Reason: Nausea And Vomiting Nifedipine (Procardia Xl) 90 mg PO Q12HR [facility] Ondansetron HCl (Zofran) 4 mg IV Q8H PRN PRN Reason: Nausea And Vomiting Oxycodone/Acetaminophen (Percocet 5/325) 1 tab PO Q6H PRN PRN Reason: Pain, Moderate (4-6) Last Admin: 08/09/19 08:13 Dose: 1 tab Documented by: Pantoprazole Sodium (Protonix) 40 mg IV QDAY [facility] Last Admin: 08/09/19 09:19 Dose: 40 mg Documented by: Potassium Chloride (K-Dur) 20 meq PO QDAY [facility] Sodium Chloride (Sodium Chloride Flush Syringe 10 Ml) 10 ml IV BID [facility] Last Admin: 08/09/19 09:20 Dose: 10 ml Documented by: Sodium Chloride (Sodium Chloride Flush Syringe 10 Ml) 10 ml IV PRN PRN PRN Reason: LINE FLUSH Exam - Constitutional Vital Signs: Temp Pulse Resp BP Pulse Ox 98.8 F 74 20 186/121 99 08/09/19 11:29 08/09/19 11:29 08/09/19 11:29 08/09/19 11:29 08/09/19 11:29 - Labs CBC & Chem 7: 08/09/19 10:19 08/09/19 10:19 Lab Results: Laboratory Results - last 24 hr 08/08/19 08/09/19 08/09/19 17:30 10:19 10:19 WBC 17.6 H RBC 5.25 H Hgb 14.8 Hct 44.4 MCV 85 MCH 28 MCHC 33 RDW 14.7 Plt Count 213 Sodium 139 Potassium 3.5 L Chloride 100.3 Carbon Dioxide 20 L Anion Gap 22 BUN 26 H Creatinine 2.7 H Estimated GFR 32 BUN/Creatinine Ratio 10 Glucose 129 H Calcium 9.4 Magnesium TSH Urine Color Yellow Urine Turbidity Clear Urine pH 7.[address] [employer] 1.012 Urine Protein 100 mg/dl Urine Glucose (UA) Neg Urine Ketones Tr Urine Blood Mod Urine Nitrite Neg Urine Bilirubin Neg Urine Urobilinogen < 2.0 Ur Leukocyte Esterase Neg Urine WBC (Auto) < 1.0 Urine RBC (Auto) 14.0 U Epithel Cells (Auto) < 1.0 Urine Creatinine Urine Total Protein 08/09/19 08/09/19 08/09/19 10:19 10:19 12:30 WBC RBC Hgb Hct MCV MCH MCHC RDW Plt Count Sodium Potassium Chloride Carbon Dioxide Anion Gap BUN Creatinine Estimated GFR BUN/Creatinine Ratio Glucose Calcium Magnesium 2.40 H TSH 1.060 Urine Color Urine Turbidity Urine pH Ur Specific [employer] Urine Protein Urine Glucose (UA) Urine Ketones Urine Blood Urine Nitrite Urine Bilirubin Urine Urobilinogen Ur Leukocyte Esterase Urine WBC (Auto) Urine RBC (Auto) U Epithel Cells (Auto) Urine Creatinine 154.1 H Urine Total Protein 83 H Assessment and Plan Patient seen and examined; agree with note above. tolerating regular diet at time of exam without gi complaints. given improved sx's, no further gi work-up needed at this time. please call as needed.
--- NOTE | 2019-08-09 11:31 | Ultrasound Report ---
ULTRASOUND RENAL INDICATION / CLINICAL INFORMATION: renla failure. COMPARISON: None available. FINDINGS: RIGHT KIDNEY: Length = 9.1 cm. [normal > 9 cm] - Parenchymal Thickness = 1.3 cm. [normal > 1.5 cm] - Echogenicity: Increased diffusely - Hydronephrosis: None. - Cyst or mass: No significant abnormality. - Stones: None seen. LEFT KIDNEY: Length = 9.6 cm. [normal > 9 cm] - Parenchymal Thickness = 1.7 cm. [normal > 1.5 cm] - Echogenicity: Increased diffusely - Hydronephrosis: None. - Cyst or mass: No significant abnormality. - Stones: None seen. URINARY BLADDER: No significant abnormality. FREE FLUID: None. ADDITIONAL FINDINGS: None. IMPRESSION: 1. Echogenic kidneys, most commonly seen with medical renal disease. 2. Slight parenchymal thinning on the right. Signer Name: Jason Newton MD Signed: 08/09/2019 11:27 AM Workstation Name: [id number]
[2019-08-09 11:36] LABS: Calcium 9.4 mg/dL (8.4-10.2)
[2019-08-09 12:54] LABS: Creatinine,Urine 154.1 mg/dL (0.1-20.0)
[2019-08-09] MEDS: POTASSIUM CHLORIDE ER 20 MEQ TAB PO SCH (15:29)
[2019-08-09] MEDS: NIFEdipine XL 90 MG TAB PO SCH (21:46)
[2019-08-10] MEDS: hydrALAZINE 25 MG TAB PO SCH ×3 (06:04→21:59)
[2019-08-10 06:39] LABS: Calcium 9.1 mg/dL (8.4-10.2)
--- NOTE | 2019-08-10 09:18 | Progress Note ---
Subjective Interval history: Patient was seen today for follow-up on multiple renal related issues Events of this hospitalization were noted blood pressure is much better controlled, tachycardia resolved Interdisciplinary notes were also reviewed Vitals intake output medications were reviewed Past medical history: Reviewed Family, social history: Reviewed Allergies: Reviewed Physical examination General: No acute distress Vitals: Reviewed HEENT: Oral mucosa moist no icterus Neck: Supple no thyromegaly nodular mass or JVD Chest: Clear to auscultation anteriorly Heart: Regular rate and rhythm S1-S2 heard no S3-S4 Abdomen: Soft nontender no suprapubic masses no organomegaly Extremity: Dry skin less than 1+ edema Psych: No evidence of any agitation and aggression noted Derm: No petechial rash Assessment and plan: From renal standpoint patient's blood pressure is currently well controlled 138/72, ultrasonogram shows changes of chronic kidney disease with parenchymal thinning unilaterally, will follow-up in outpatient setting Patient likely has secondary hypertension 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 for now Metabolic acidosis he must modify his diet and lifestyle, patient was advised to take sodium bicarbonate quarter teaspoon in a glass of water daily for now Must reduce intake of animal protein as well as salt in the diet increase free water IPO cholemia has responded well Tachycardia: Was running 138 yesterday currently at 71 Patient has been told to make an appointment in the office for follow-up, next week he must bring all his medications have given him all the education in regards to his renal failure His renal prognosis remains very guarded at this time given that he has long- standing history of uncontrolled hypertension recently admitted with symptomatic hypertension uncontrolled quite concerning In the absence of proper renal follow-up is high risk for progression to end- stage renal disease mortality risk was also discussed with patient, due to uncontrolled hypertension as well as him running out of medications All renal related issues were discussed with the patient, patient does exhibit good understanding, lab results were also discussed with patient in simple Spanish Prognosis: Guarded We'll continue to follow and make recommendation from renal standpoint Objective - Vital Signs Vital signs: Vital Signs - 12hr 08/09/19 08/09/19 08/09/19 21:44 21:45 21:46 Temperature Pulse Rate 138 H 138 H 138 H Respiratory Rate Blood Pressure 203/123 203/123 203/123 O2 Sat by Pulse Oximetry 08/09/19 08/10/19 08/10/19 23:30 04:58 06:04 Temperature 98.6 F 98.0 F Pulse Rate 72 77 71 Respiratory 20 20 Rate Blood Pressure 162/89 138/76 138/72 O2 Sat by Pulse 96 98 Oximetry - Lab 08/09/19 10:19 08/10/19 05:53 Most recent lab results Calcium 9.1 mg/dL (8.4-10.2) 08/10/19 05:53 Magnesium 2.40 mg/dL (1.7-2.3) H 08/09/19 10:19 Urine Creatinine 154.1 mg/dL (0.1-20.0) H 08/09/19 12:30 Urine Total Protein 83 mg/dL (5-11.8) H 08/09/19 12:30 Medications & Allergies - Medications Allergies/Adverse Reactions: Allergies No Known Allergies Allergy (Unverified 02/19/14 18:08) Home Medications: Home Medications Medication Instructions Recorded Confirmed Last Taken Type labetaloL [Labetalol 200mg TAB] 100 mg PO BID #60 tablet 02/20/14 08/07/19 Unknown Rx lisinopriL [Zestril TAB] 40 mg PO QDAY #30 tablet 02/20/14 08/07/19 Unknown Rx Cholecalciferol (Vitamin D3) 50,000 unit PO 1XW 08/07/19 08/07/19 Unknown History [Vitamin D3 50,000UNIT CAP] Furosemide [Lasix TAB] 80 mg PO BID 08/07/19 08/07/19 Unknown History carvediloL [Coreg] 25 mg PO BID 08/07/19 08/07/19 Unknown History cloNIDine [Catapres] 0.2 mg PO TID 08/07/19 08/07/19 Unknown History Active Medications: Generic Name Dose Route Start Last Admin Trade Name Freq PRN Reason Stop Dose Admin Acetaminophen 650 mg 08/07/19 05:31 08/08/19 11:47 Tylenol PO 650 mg Q4H PRN Administration Pain MILD(1-3)/Fever >100.5/BAUMAN Clonidine HCl 0.3 mg 08/09/19 22:00 08/09/19 21:45 Catapres PO 0.3 mg Q12HR GERBER Administration Hydralazine HCl 50 mg 08/09/19 10:54 08/10/19 06:04 Apresoline PO 50 mg Q8HR GERBER Administration Hydralazine HCl 10 mg 08/09/19 10:54 Apresoline IV Q4HR PRN bP > 160/100 Labetalol HCl 100 mg 08/07/19 10:00 08/09/19 21:44 Labetalol PO 100 mg BID GERBER Administration Labetalol HCl 10 mg 08/07/19 09:51 08/09/19 06:04 Labetalol IV 10 mg Q4H PRN Administration Blood Pressure Metoclopramide HCl 5 mg 08/09/19 11:00 Reglan IV Q8H PRN Nausea And Vomiting Nifedipine 90 mg 08/09/19 22:00 08/09/19 21:46 Procardia Xl PO 90 mg Q12HR GERBER Administration Ondansetron HCl 4 mg 08/07/19 05:31 Zofran IV Q8H PRN Nausea And Vomiting Oxycodone/Acetaminophen 1 tab 08/08/19 22:09 08/09/19 20:13 Percocet 5/325 PO 1 tab Q6H PRN Administration Pain, Moderate (4-6) Pantoprazole Sodium 40 mg 08/08/19 15:00 08/09/19 09:19 Protonix IV 40 mg QDAY GERBER Administration Potassium Chloride 20 meq 08/09/19 14:00 08/09/19 15:29 K-Dur PO 20 meq QDAY GERBER Administration Sodium Chloride 10 ml 08/07/19 10:00 08/09/19 22:00 Sodium Chloride Flush Syringe 10 Ml IV 10 ml BID GERBER Administration Sodium Chloride 10 ml 08/07/19 05:31 Sodium Chloride Flush Syringe 10 Ml IV PRN PRN LINE FLUSH
[2019-08-10] MEDS: cloNIDine 0.1 MG TAB PO SCH ×2 (09:36→21:58)
[2019-08-10] MEDS: PANTOPRAZOLE 40 MG INJ IV SCH (09:36)
[2019-08-10] MEDS: POTASSIUM CHLORIDE ER 20 MEQ TAB PO SCH (09:36)
[2019-08-10] MEDS: NIFEdipine XL 90 MG TAB PO SCH ×2 (09:36→22:00)
[2019-08-10] MEDS: oxyCODONE /ACETAMINOPHEN 5-325MG TAB PO PRN (13:56)
--- NOTE | 2019-08-10 15:23 | Progress Note ---
Assessment and Plan - Patient Problems (1) SIRS (systemic inflammatory response syndrome) Current Visit: Yes Status: Acute Plan to address problem: Empiric IV antibiotic therapy with Levaquin, repeat CBC in a.m., chest x-ray, rapid HIV, complement level, antinuclear antibody testing. (2) Hypertensive urgency Current Visit: Yes Status: Acute Plan to address problem: Monitor blood pressure every shift, continue current therapy. (3) HUNTER (acute kidney injury) Current Visit: Yes Status: Acute Plan to address problem: Nephrology team consulted. Monitor urine output every shift, avoid nephrotoxic agents, (4) Acidosis Current Visit: Yes Status: Acute Plan to address problem: IV bicarbonate therapy. Repeat BMP. (5) Noncompliance Current Visit: Yes Status: Acute Plan to address problem: Behavior change counseling. (6) DVT prophylaxis Current Visit: Yes Status: Acute Plan to address problem: SCD to BLE while in bed, Pt ambulatory History Interval history: 39-year-old male hospital day 4 with hypertensive urgency, systemic inflammatory response syndrome, acute kidney injury, acidosis. Patient continued continues to have leukocytosis overnight. Patient continues to have metabolic acidosis. Patient denies recurrent vomiting overnight. Patient denies fever, chills, chest pain, shortness of breath. No reported nursing events overnight. Hospitalist Physical - Constitutional Vitals: Temp Pulse Resp BP Pulse Ox 98.5 F 72 20 138/84 97 08/10/19 11:54 08/10/19 13:56 08/10/19 11:54 08/10/19 13:56 08/10/19 11:54 General appearance: Present: no acute distress - EENT Eyes: Present: PERRL ENT: hearing intact - Neck Neck: Present: supple - Respiratory Respiratory: bilateral: CTA - Cardiovascular Rhythm: regular Heart Sounds: Present: S1 & S2 - Extremities Extremities: no ischemia Peripheral Pulses: within normal limits - Abdominal General gastrointestinal: soft, non-tender, non-distended - Integumentary Integumentary: Present: clear, warm, erythema - Psychiatric Psychiatric: appropriate mood/affect, cooperative - Neurologic Neurologic: CNII-XII intact Results - Labs CBC & Chem 7: 08/09/19 10:19 08/10/19 05:53 Labs: Laboratory Last Values WBC 17.6 K/mm3 (4.5-11.0) H 08/09/19 10:19 RBC 5.25 M/mm3 (3.65-5.03) H 08/09/19 10:19 Hgb 14.8 gm/dl (11.8-15.2) 08/09/19 10:19 Hct 44.4 % (35.5-45.6) 08/09/19 10:19 MCV 85 fl (84-94) 08/09/19 10:19 MCH 28 pg (28-32) 08/09/19 10:19 MCHC 33 % (32-34) 08/09/19 10:19 RDW 14.7 % (13.2-15.2) 08/09/19 10:19 Plt Count 213 K/mm3 (140-440) 08/09/19 10:19 Lymph % (Auto) 15.2 % (13.4-35.0) 08/08/19 05:30 Mccormick % (Auto) 5.7 % (0.0-7.3) 08/08/19 05:30 Eos % (Auto) 0.1 % (0.0-4.3) 08/08/19 05:30 Baso % (Auto) 0.5 % (0.0-1.8) 08/08/19 05:30 Lymph # 2.7 K/mm3 (1.2-5.4) 08/08/19 05:30 Mccormick # 1.0 K/mm3 (0.0-0.8) H 08/08/19 05:30 Eos # 0.0 K/mm3 (0.0-0.4) 08/08/19 05:30 Baso # 0.1 K/mm3 (0.0-0.1) 08/08/19 05:30 Seg Neutrophils % 78.5 % (40.0-70.0) H 08/08/19 05:30 Seg Neutrophils # 14.0 K/mm3 (1.8-7.7) H 08/08/19 05:30 Sodium 140 mmol/L (137-145) 08/10/19 05:53 Potassium 3.7 mmol/L (3.6-5.0) 08/10/19 05:53 Chloride 102.3 mmol/L (98-107) 08/10/19 05:53 Carbon Dioxide 21 mmol/L (22-30) L 08/10/19 05:53 Anion Gap 20 mmol/L 08/10/19 05:53 BUN 25 mg/dL (9-20) H 08/10/19 05:53 Creatinine 2.4 mg/dL (0.8-1.5) H 08/10/19 05:53 Estimated GFR 37 ml/min 08/10/19 05:53 BUN/Creatinine Ratio 10 % 08/10/19 05:53 Glucose 110 mg/dL (75-100) H 08/10/19 05:53 Calcium 9.1 mg/dL (8.4-10.2) 08/10/19 05:53 Magnesium 2.40 mg/dL (1.7-2.3) H 08/09/19 10:19 TSH 1.060 mlU/mL (0.270-4.200) 08/09/19 10:19 Urine Color Yellow (Yellow) 08/08/19 17:30 Urine Turbidity Clear (Clear) 08/08/19 17:30 Urine pH 7.0 (5.0-7.0) 08/08/19 17:30 Ur Specific Stanley 1.012 (1.003-1.030) 08/08/19 17:30 Urine Protein 100 mg/dl mg/dL (Negative) 08/08/19 17:30 Urine Glucose (UA) Neg mg/dL (Negative) 08/08/19 17:30 Urine Ketones Tr mg/dL (Negative) 08/08/19 17:30 Urine Blood Mod (Negative) 08/08/19 17:30 Urine Nitrite Neg (Negative) 08/08/19 17:30 Urine Bilirubin Neg (Negative) 08/08/19 17:30 Urine Urobilinogen < 2.0 mg/dL (<2.0) 08/08/19 17:30 Ur Leukocyte Esterase Neg (Negative) 08/08/19 17:30 Urine WBC (Auto) < 1.0 /HPF (0.0-6.0) 08/08/19 17:30 Urine RBC (Auto) 14.0 /HPF (0.0-6.0) 08/08/19 17:30 U Epithel Cells (Auto) < 1.0 /HPF (0-13.0) 08/08/19 17:30 Urine Creatinine 154.1 mg/dL (0.1-20.0) H 08/09/19 12:30 Urine Total Protein 83 mg/dL (5-11.8) H 08/09/19 12:30 Urine Opiates Screen Presumptive positive 08/07/19 10:06 Urine Methadone Screen Presumptive negative 08/07/19 10:06 Ur Barbiturates Screen Presumptive negative 08/07/19 10:06 Ur Phencyclidine Scrn Presumptive negative 08/07/19 10:06 Ur Amphetamines Screen Presumptive negative 08/07/19 10:06 U Benzodiazepines Scrn Presumptive negative 08/07/19 10:06 Urine Cocaine Screen Presumptive negative 08/07/19 10:06 U Marijuana (THC) Screen Presumptive positive 08/07/19 10:06 Drugs of Abuse Note Disclamer 08/07/19 10:06 Active Medications - Current Medications Current Medications: Generic Name Dose Route Start Last Admin Trade Name Freq PRN Reason Stop Dose Admin Acetaminophen 650 mg 08/07/19 05:31 08/08/19 11:47 Tylenol PO 650 mg Q4H PRN Administration Pain MILD(1-3)/Fever >100.5/BAUMAN Clonidine HCl 0.3 mg 08/09/19 22:00 08/10/19 09:36 Catapres PO 0.3 mg Q12HR GERBER Administration Hydralazine HCl 50 mg 08/09/19 10:54 08/10/19 13:56 Apresoline PO 50 mg Q8HR GERBER Administration Hydralazine HCl 10 mg 08/09/19 10:54 Apresoline IV Q4HR PRN bP > 160/100 Labetalol HCl 100 mg 08/07/19 10:00 08/10/19 09:36 Labetalol PO 100 mg BID GERBER Administration Labetalol HCl 10 mg 08/07/19 09:51 08/09/19 06:04 Labetalol IV 10 mg Q4H PRN Administration Blood Pressure Metoclopramide HCl 5 mg 08/09/19 11:00 Reglan IV Q8H PRN Nausea And Vomiting Nifedipine 90 mg 08/09/19 22:00 08/10/19 09:36 Procardia Xl PO 90 mg Q12HR GERBER Administration Ondansetron HCl 4 mg 08/07/19 05:31 Zofran IV Q8H PRN Nausea And Vomiting Oxycodone/Acetaminophen 1 tab 08/08/19 22:09 08/10/19 13:56 Percocet 5/325 PO 1 tab Q6H PRN Administration Pain, Moderate (4-6) Pantoprazole Sodium 40 mg 08/11/19 10:00 Protonix PO DAILY GERBER Potassium Chloride 20 meq 08/09/19 14:00 08/10/19 09:36 K-Dur PO 20 meq QDAY GERBER Administration Sodium Chloride 10 ml 08/07/19 10:00 08/10/19 09:37 Sodium Chloride Flush Syringe 10 Ml IV 10 ml BID GERBER Administration Sodium Chloride 10 ml 08/07/19 05:31 Sodium Chloride Flush Syringe 10 Ml IV PRN PRN LINE FLUSH
[2019-08-10] MEDS ORDERED: SODIUM BICARB 8.4% 50 MEQ/50 ML SYRINGE IV ONE (15:28)
[2019-08-11] MEDS: hydrALAZINE 25 MG TAB PO SCH ×2 (05:54→16:19)
[2019-08-11 07:11] LABS: Basophils # (Auto) 0.1 K/mm3 (0.0-0.1); Basophils % (Auto) 0.8 % (0.0-1.8); Eosinophils # (Auto) 0.3 K/mm3 (0.0-0.4); Hematocrit 42.3 % (35.5-45.6); Hemoglobin 14.2 gm/dl (11.8-15.2); Lymphocytes # (Auto) 3.5 K/mm3 (1.2-5.4); Lymphocytes % (Auto) 23.2 % (13.4-35.0); Mean Corpuscular HGB Conc 34 % (32-34); Mean Corpuscular Volume 85 fl (84-94); Monocytes # (Auto) 1.3 K/mm3 (0.0-0.8); Monocytes % (Auto) 8.7 % (0.0-7.3); Platelet Count 216 K/mm3 (140-440); Red Blood Count 4.98 M/mm3 (3.65-5.03); Red Cell Distribution Width 14.2 % (13.2-15.2)
[2019-08-11 07:31] LABS: Calcium 9.1 mg/dL (8.4-10.2)
--- NOTE | 2019-08-11 09:15 | Progress Note ---
Subjective Interval history: Patient was seen today for follow-up on multiple renal related issues pressure is much better controlled patient's potassium is still low He is on multiple medications for blood pressure Renal function continues to improve Interdisciplinary notes were also reviewed Vitals intake output medications were reviewed Past medical history: Reviewed Family, social history: Reviewed Allergies: Reviewed Physical examination General: No acute distress Vitals: Reviewed HEENT: Oral mucosa moist no icterus Neck: Supple no thyromegaly nodular mass or JVD Chest: Clear to auscultation anteriorly Heart: Regular rate and rhythm S1-S2 heard no S3-S4 Abdomen: Soft nontender no suprapubic masses no organomegaly Extremity: Dry skin less than 1+ edema Psych: No evidence of any agitation and aggression noted Derm: No petechial rash Assessment and plan: From renal standpoint patient's blood pressure is currently well controlled 138/72, ultrasonogram shows changes of chronic kidney disease with parenchymal thinning unilaterally, will follow-up in outpatient setting, Will order renal arterial Doppler Acute renal failure, patient's creatinine is slowly improving 2.3 Most of this was resulting from uncontrolled/accelerated hypertension which is currently much better controlled Hypokalemia with hypertension and high clinical index of suspicion for secondary hypertension follow-up on pending aldosterone as well as plasma renin level in the meantime patient will be started on spironolactone 50 mg once a day, if potassium is normal it can be discontinued tomorrow He will need to stay here for another day as he is requiring several different medications for blood pressure control In outpatient setting he was taking labetalol as well as lisinopril and carvedilol and Lasix He was admitted with uncontrolled hypertension, was out of medications, renal ultrasonogram shows echogenic kidneys Prognosis: Guarded We'll continue to follow and make recommendation from renal standpoint Objective - Vital Signs Vital signs: Vital Signs - 12hr 08/10/19 08/10/19 08/10/19 21:58 21:59 22:00 Temperature Pulse Rate 109 H 109 H 109 H Respiratory Rate Blood Pressure 174/100 174/109 O2 Sat by Pulse Oximetry 08/11/19 08/11/19 08/11/19 01:00 04:43 05:54 Temperature 98.6 F Pulse Rate 100 H 75 79 Respiratory 16 Rate Blood Pressure 137/83 137/83 O2 Sat by Pulse 97 Oximetry - Lab 08/11/19 05:37 08/11/19 05:37 Most recent lab results Calcium 9.1 mg/dL (8.4-10.2) 08/11/19 05:37 Magnesium 2.40 mg/dL (1.7-2.3) H 08/09/19 10:19 Urine Creatinine 154.1 mg/dL (0.1-20.0) H 08/09/19 12:30 Urine Total Protein 83 mg/dL (5-11.8) H 08/09/19 12:30 Medications & Allergies - Medications Allergies/Adverse Reactions: Allergies No Known Allergies Allergy (Unverified 02/19/14 18:08) Home Medications: Home Medications Medication Instructions Recorded Confirmed Last Taken Type labetaloL [Labetalol 200mg TAB] 100 mg PO BID #60 tablet 02/20/14 08/07/19 Unknown Rx lisinopriL [Zestril TAB] 40 mg PO QDAY #30 tablet 02/20/14 08/07/19 Unknown Rx Cholecalciferol (Vitamin D3) 50,000 unit PO 1XW 08/07/19 08/07/19 Unknown History [Vitamin D3 50,000UNIT CAP] Furosemide [Lasix TAB] 80 mg PO BID 08/07/19 08/07/19 Unknown History carvediloL [Coreg] 25 mg PO BID 08/07/19 08/07/19 Unknown History cloNIDine [Catapres] 0.2 mg PO TID 08/07/19 08/07/19 Unknown History Active Medications: Generic Name Dose Route Start Last Admin Trade Name Freq PRN Reason Stop Dose Admin Acetaminophen 650 mg 08/07/19 05:31 08/08/19 11:47 Tylenol PO 650 mg Q4H PRN Administration Pain MILD(1-3)/Fever >100.5/BAUMAN Clonidine HCl 0.3 mg 08/09/19 22:00 08/10/19 21:58 Catapres PO 0.3 mg Q12HR GERBER Administration Hydralazine HCl 50 mg 08/09/19 10:54 08/11/19 05:54 Apresoline PO 50 mg Q8HR GERBER Administration Hydralazine HCl 10 mg 08/09/19 10:54 Apresoline IV Q4HR PRN bP > 160/100 Levofloxacin/Dextrose 500 mg in 100 mls @ 100 mls/hr 08/10/19 15:31 08/10/19 17:39 Levaquin 500mg/100ml IV 08/11/19 23:59 100 mls/hr Q24HR GERBER Administration Protocol Labetalol HCl 100 mg 08/07/19 10:00 08/10/19 22:00 Labetalol PO 100 mg BID GERBER Administration Labetalol HCl 10 mg 08/07/19 09:51 08/09/19 06:04 Labetalol IV 10 mg Q4H PRN Administration Blood Pressure Metoclopramide HCl 5 mg 08/09/19 11:00 Reglan IV Q8H PRN Nausea And Vomiting Nifedipine 90 mg 08/09/19 22:00 08/10/19 22:00 Procardia Xl PO 90 mg Q12HR GERBER Administration Ondansetron HCl 4 mg 08/07/19 05:31 Zofran IV Q8H PRN Nausea And Vomiting Oxycodone/Acetaminophen 1 tab 08/08/19 22:09 08/10/19 13:56 Percocet 5/325 PO 1 tab Q6H PRN Administration Pain, Moderate (4-6) Pantoprazole Sodium 40 mg 08/11/19 10:00 Protonix PO DAILY GERBER Potassium Chloride 20 meq 08/09/19 14:00 08/10/19 09:36 K-Dur PO 20 meq QDAY GERBER Administration Sodium Chloride 10 ml 08/07/19 10:00 08/10/19 21:57 Sodium Chloride Flush Syringe 10 Ml IV 10 ml BID GERBER Administration Sodium Chloride 10 ml 08/07/19 05:31 Sodium Chloride Flush Syringe 10 Ml IV PRN PRN LINE FLUSH Spironolactone 50 mg 08/11/19 10:00 Aldactone PO QDAY GERBER
[2019-08-11] MEDS ORDERED: SPIRONOLACTONE 50 MG TAB PO SCH (10:00)
[2019-08-11] MEDS ORDERED: PANTOPRAZOLE 40 MG TAB PO SCH (10:00)
[2019-08-11] MEDS: POTASSIUM CHLORIDE ER 20 MEQ TAB PO SCH (13:12)
[2019-08-11] MEDS: NIFEdipine XL 90 MG TAB PO SCH (13:13)
[2019-08-11] MEDS: cloNIDine 0.1 MG TAB PO SCH (13:14)
[2019-08-11 17:13] LABS: Myeloperoxidase Antibody <1.0 AI (<1.0)
--- NOTE | 2019-08-11 17:32 | Discharge Summary ---
Providers - Providers Date of Admission: 08/07/19 04:41 Attending physician: JUVENTINO WILD 08/08/19 14:26 Consult to Physician [CONS] Routine Comment: Consulting Provider: [facility] Physician Instructions: Reason For Exam: intractable n/v 08/08/19 14:41 Consult to Physician [CONS] Routine Comment: Consulting Provider: ELENO KENNEY Physician Instructions: Reason For Exam: ARF/CKD Primary care physician: [facility]ER D[employer]ED [employer] Hospitalization Condition: Stable - Discharge Diagnoses (1) SIRS (systemic inflammatory response syndrome) Status: Acute (2) Hypertensive urgency Status: Acute (3) HUNTER (acute kidney injury) Status: Acute (4) Acidosis Status: Acute (5) Noncompliance Status: Acute (6) DVT prophylaxis Status: Acute Exam - Constitutional Vitals: Temp Pulse Resp BP Pulse Ox 98.3 F 69 16 138/99 100 08/11/19 16:20 08/11/19 16:20 08/11/19 16:20 08/11/19 16:20 08/11/19 16:20 Plan Follow up with: PRIMARY CARE, [Primary Care Provider] - 3-5 Days Prescriptions: NIFEdipine [Adalat cc] 90 mg PO BID #60 tablet.er Spironolactone [Aldactone] 50 mg PO QDAY #30 tablet hydrALAZINE [Apresoline TAB] 50 mg PO Q8HR #90 tab cloNIDine [Catapres] 0.2 mg PO TID #90 tablet Ciprofloxacin HCl [Ciprofloxacin TAB] 500 mg PO DAILY #5 tablet labetaloL [Labetalol 100mg TAB] 100 mg PO BID #60 tablet Other Discharge Orders: US renal BILAT Location: None Selected
[2019-08-11 17:43] VITALS: BP 146/96
[2019-08-12 12:44] LABS: ANA Screen, IFA Negative (Negative)
== END 2019-08-11 18:35 | disposition home or self-care (01) | DRG 304 ==
LOC: ED 21:52 → 4A 08-07 04:41 → 3A 08-07 09:10
PROVIDERS: ADMIT Internal Medicine; ATTEND Internal Medicine
DX: I16.0 Hypertensive urgency (principal); N17.0 Acute kidney failure with tubular necrosis; R65.10 Systemic inflammatory response syndrome (SIRS) of non-infectious origin without acute organ dysfunction; E87.2 Acidosis; E87.6 Hypokalemia; D72.829 Elevated white blood cell count, unspecified; I12.9 Hypertensive chronic kidney disease with stage 1 through stage 4 chronic kidney disease, or unspecified chronic kidney disease; R00.0 Tachycardia, unspecified; N18.3 Chronic kidney disease, stage 3 (moderate); Z91.19 Patient's noncompliance with other medical treatment and regimen; Z82.49 Family history of ischemic heart disease and other diseases of the circulatory system; Z83.3 Family history of diabetes mellitus; Z79.899 Other long term (current) drug therapy
CPT/HCPCS: 36415; 70450; 71045; 76770; 80048; 80307; 81001; 82088; 82570; 83735; 84156; 84443; 85025; 85027; 86021; 86038; 86160; 87040; 87806; G0378; C9113; J0360; J1650; J1956; J2270; J2405; J7050

== ENCOUNTER 2021-05-09 11:16 | Day surgery (SDC) | payer MEDICARE ==
[~2021-05-09 11:16] MED LIST: MIDAZOLAM 2 MG/2 ML INJ IV NR; SODIUM CHLORIDE 0.9% 1000 ML 1,000 ML IV SCH
[2021-05-09 12:14] LABS: Hematocrit 40.8 % (35.5-45.6); Hemoglobin 13.8 gm/dl (11.8-15.2); Mean Corpuscular HGB Conc 34 % (32-34); Mean Corpuscular Volume 89 fl (84-94); Platelet Count 235 K/mm3 (140-440); Red Blood Count 4.61 M/mm3 (3.65-5.03); Red Cell Distribution Width 13.8 % (13.2-15.2)
[2021-05-09 12:37] LABS: Calcium 9.2 mg/dL (8.4-10.2)
[2021-05-09] MEDS ORDERED: HYDROcodone/ACETAMINOPHEN 5-325 MG TAB PO PRN (12:41)
[2021-05-09] MEDS ORDERED: fentaNYL 100 MCG/2 ML INJ IV PRN (12:41)
[2021-05-09] MEDS ORDERED: ONDANSETRON 4 MG/2 ML INJ IV PRN (12:41)
--- NOTE | 2021-05-09 12:41 | Anesthesia Consultation ---
Anesthesia Consult and Med Hx Date of service: 05/09/21 - Airway Anesthetic Teeth Evaluation: Good ROM Head & Neck: Adequate Mental/Hyoid Distance: Adequate Mallampati Class: Class III Intubation Access Assessment: Possibly Difficult - Pre-Operative Health Status ASA Pre-Surgery Classification: ASA3 Proposed Anesthetic Plan: General - Pulmonary Hx Smoking: Yes (THC 2-3x/day; quit cigarettes 4yrs ago) Hx Respiratory Symptoms: No - Cardiovascular System Hx Hypertension: Yes (took all antihypertensives this morning) Hx Heart Attack/AMI: No Hx Percutaneous Transluminal Coronary Angioplasty (PTCA): No Hx Cardia Arrhythmia: No - Central Nervous System CVA: No - Endocrine Hx End Stage Renal Disease: Yes (last HD 05/08/21) Hx Liver Disease: No Hx Insulin Dependent Diabetes: No Hx Non-Insulin Dependent Diabetes: No Hx Thyroid Disease: No - Other Systems Hx Substance Use: Yes (THC) Hx Obesity: No - Additional Comments Anesthesia Medical History Comments: No hx anesthetic complications.
--- NOTE | 2021-05-09 12:41 | Anesthesia Day of Surgery ---
Anesthesia Day of Surgery - Day of Surgery Patient Examined: Yes Patient H&P Reviewed: Yes Patient is NPO: Yes Beta Blockers: Yes
[2021-05-09] MEDS ORDERED: LIDOCAINE MPF (2%) 20 MG/1 ML VIAL 5 ML ONE (13:02)
[2021-05-09] MEDS ORDERED: propofoL 200 MG/20 ML VIAL IV ONE (13:02)
[2021-05-09] MEDS ORDERED: ceFAZolin/STERILE WATER 2 GM/20 ML SYRINGE IV NR (14:00)
[2021-05-09] MEDS ORDERED: LIDOCAINE (1%) 10 MG/1 ML VIAL 20 ML MDV ONE (14:06)
[2021-05-09] MEDS ORDERED: HEPARIN 10,000 UNITS/10 ML VIAL ONE (14:06)
[2021-05-09] MEDS ORDERED: PROTAMINE SULFATE 50 MG/5 ML INJ ONE (14:06)
[2021-05-09] MEDS ORDERED: SODIUM CHLORIDE 0.9% 250ML 250 ML ONE (14:06)
[2021-05-09] MEDS ORDERED: dexAMETHasone 20 MG/5 ML VIAL ONE (14:46)
[2021-05-09] MEDS ORDERED: fentaNYL 100 MCG/2 ML INJ ONE (14:46)
[2021-05-09] MEDS ORDERED: ONDANSETRON 4 MG/2 ML INJ ONE (14:46)
[2021-05-09] MEDS ORDERED: HEPARIN 10,000 UNITS/10 ML VIAL IV ONE (15:16)
[2021-05-09] MEDS ORDERED: LIDOCAINE (1%) 10 MG/1 ML VIAL 20 ML MDV INFILTRATI ONE (15:25)
[2021-05-09] MEDS ORDERED: SODIUM CHLORIDE 0.9% 250 ML IVPB IV ONE (15:25)
[2021-05-09] MEDS ORDERED: ePHEDrine SULFATE 50 MG/1 ML INJ ONE (15:41)
[2021-05-09] MEDS ORDERED: THROMBIN (RECOMBINANT) 5,000 UNIT VIAL TP ONE (16:26)
--- NOTE | 2021-05-09 16:52 | Post Operative Note ---
Date of procedure: 05/09/21 Pre-op diagnosis: ESRD Post-op diagnosis: same Procedure: Right Arm Basilic Vein Transposition Anesthesia: GETA Surgeon: KVNG VALDES Estimated blood loss: other (25 ml) Pathology: none Condition: stable Disposition: PACU
[2021-05-09] MEDS ORDERED: oxyCODONE /ACETAMINOPHEN 5-325MG TAB PO PRN (16:54)
--- NOTE | 2021-05-09 16:54 | Short Stay Summary ---
Short Stay Documentation Date of service: 05/09/21 - History H&P: dictated Past Medical History: ESRD, hypertension - Allergies and Medications Current Medications: Allergies morphine Allergy (Verified 05/06/21 12:59) Nausea Home Medications Medication Instructions Recorded Confirmed Last Taken Type Aspirin [Aspirin BABY CHEW TAB] 81 mg PO QDAY #30 tab.chew 11/27/20 05/06/21 05/09/21 10:30 Rx NIFEdipine XL [Procardia Xl] 90 mg PO Q12HR #60 tablet 11/27/20 05/06/21 05/09/21 10:30 Rx carvediloL [Coreg] 25 mg PO BID #60 11/27/20 05/06/21 05/09/21 10:30 Rx cloNIDine [Catapres] 0.2 mg PO TID #90 11/27/20 05/06/21 05/09/21 10:30 Rx hydrALAZINE [Apresoline TAB] 100 mg PO TID #90 tab 11/27/20 05/06/21 05/09/21 10:30 Rx minoxidiL [Loniten] 2.5 mg PO QDAY #30 tablet 11/27/20 05/06/21 05/09/21 10:30 Rx Active Medications Hydrocodone Bitart/Acetaminophen (Hydrocodone/Acetaminophen 5-325 Mg Tab) 2 each PO ONCE PRN PRN Reason: Pain, Moderate (4-6) Cefazolin Sodium (Cefazolin/Sterile Water 2 Gm/20 Ml Syringe) 2 gm IV PREOP NR Stop: 05/09/21 20:00 Fentanyl (Fentanyl 100 Mcg/2 Ml Inj) 50 mcg IV Q5MIN PRN PRN Reason: Pain , Severe (7-10) Sodium Chloride (Nacl 0.9% 1000 Ml) 1,000 mls @ 42 mls/hr IV DIRECT GERBER Stop: 05/09/21 23:59 Last Admin: 05/09/21 11:45 Dose: 42 mls/hr Documented by: Midazolam HCl (Midazolam 2 Mg/2 Ml Inj) 2 mg IV PREOP NR Stop: 05/09/21 21:00 Last Admin: 05/09/21 12:37 Dose: 2 mg Documented by: Ondansetron HCl (Ondansetron 4 Mg/2 Ml Inj) 4 mg IV ONCE PRN PRN Reason: Nausea And Vomiting - Physical exam General appearance: no acute distress HEENT: Atraumatic Lungs: Normal air movement Heart: Regular rate Extremities: no ischemia - Hospital course Hospital course: the patient was taken to the operating room and had a right arm av fistula creation performed. please refer to the operative note concerning details of the procedure. the patient tolerated the procedure well and was discharged home in stable condition. - Disposition Condition at discharge: Stable Disposition: 01 HOME / SELF CARE / HOMELESS Short Stay Discharge Plan Follow up with: CAMPOS REILLY MD [Primary Care Provider] - 7 Days
[2021-05-09] MEDS ORDERED: hydrALAZINE 20 MG/1 ML INJ ONE (17:08)
[2021-05-09] MEDS: hydrALAZINE 20 MG/1 ML INJ IV PRN ×2 (17:10→17:55)
--- NOTE | 2021-05-09 17:21 | Operative Report ---
DATE OF SURGERY: 05/09/2021 STAFF SURGEON: Dr. Mohamud Lama. PREOPERATIVE DIAGNOSIS: End-stage renal disease. POSTOPERATIVE DIAGNOSIS: End-stage renal disease. PROCEDURE PERFORMED: Right arm basilic vein transposition. COMPLICATIONS: None. ESTIMATED BLOOD LOSS: 25 mL. ANESTHESIA: General. INDICATIONS FOR PROCEDURE: This is a 41-year-old gentleman with end-stage renal disease on hemodialysis via right IJ PermCath, in need of upper extremity access. The patient had a marginal basilic vein in the right upper arm and was slated to undergo AV fistula creation and possible graft. The patient was explained the risks, benefits and alternatives of procedure, expressed understanding and wished to proceed. DESCRIPTION OF PROCEDURE: The appropriate consent was obtained, the patient was brought back to the operating room and placed on the operating table in supine position with the right arm extended. The patient was given appropriate medication for general anesthesia, had LMA placed without difficulty. The right arm was prepped and draped in the usual sterile fashion with ChloraPrep. Appropriate preoperative antibiotics were administered, and appropriate timeout was performed indicating correct patient, procedure, and site of procedure. We then began the operation by making a longitudinal incision in the medial upper arm. This was carried through the subcutaneous tissue with combination of blunt dissection and electrocautery. The basilic vein was identified, was found to be marginal in size, but thought would be suitable for fistula creation. This was then mobilized. The incision was then extended towards the axilla and the basilic vein was mobilized in the entirety of the wound. The branches were controlled, transected and ligated with silk suture. We then proceeded to expose the brachial artery in the distal aspect of the incision by continuing our dissection through the bicep aponeurosis. The brachial artery was identified, also found to be marginal in size, but thought to be suitable for arterial inflow, so was mobilized for appropriate distance both proximally and distally. Control was obtained with a small vessel loop. We then proceeded to transect the basilic vein in the distal aspect of the incision. The stump was ligated with silk suture. The anterior surface was marked with a marker and was flushed with heparinized saline. I was able to use dilators up to a size of 4 mm in the vein. We then proceeded to create a subcutaneous tunnel bringing through the basilic vein with care to avoid any twisting or kinking. The patient was given 5000 units of unfractionated heparin. After appropriate timeout elapsed, vascular clamps were placed on the brachial artery both proximally and distally. Longitudinal arteriotomy was made with an 11-blade knife and extended with Sanchez scissors. The vein was appropriately spatulated and an end-to-side anastomosis was performed with a running 6-0 Prolene suture. Once complete, flow was established through the vein, which had a nice palpable thrill. We then looked to obtain hemostasis along our suture lines, which was obtained with hemostatic agents. Once we were satisfied with hemostasis, we then proceeded to close the wound, deep subcutaneous layer with interrupted 3-0 PDS and the skin was approximated with silver. Appropriate dressing was placed. The patient tolerated the procedure well, emerged from the general anesthesia with LMA removed and was sent to recovery in stable condition. All sponge, instrument and needle counts were correct at completion of the operation. TID: [id number] RECEIPT: [id number] VCN/DANIEL
--- NOTE | 2021-05-09 18:55 | Post Anesthesia Evaluation ---
- Post Anesthesia Evaluation Patient Participated: Yes Airway Patent: Yes Stable Respiratory Function: Yes Nausea/Vomiting: No Temp > 96.8F: Yes Pain Manageable: Yes Adequeate Hydration: Yes Anesthesia Complications: No
[2021-05-09 19:26] VITALS: BP 146/99
== END 2021-05-09 19:15 | disposition home or self-care (01) ==
LOC: OR 11:16
PROVIDERS: ATTEND Surgery Vascular Surgery
DX: I12.0 Hypertensive chronic kidney disease with stage 5 chronic kidney disease or end stage renal disease (principal); N18.6 End stage renal disease; Z20.822 Contact with and (suspected) exposure to COVID-19; Z87.891 Personal history of nicotine dependence; Z79.899 Other long term (current) drug therapy; Z79.82 Long term (current) use of aspirin; Z88.6 Allergy status to analgesic agent; Z98.890 Other specified postprocedural states
CPT/HCPCS: 36415; 36819; 80048; 85027; J0360; J0690; J1100; J1644; J2250; J2405; J2704; J2720; J3010; J7030; J7050; U0003

== ENCOUNTER 2021-05-10 15:13 | Emergency (ER) | payer MEDICARE ==
--- NOTE | 2021-05-10 16:41 | Emergency Department Report ---
- General Chief Complaint: Extremity Problem,Nontraumatic Stated Complaint: BLEEDING FROM INCISION Time Seen by Provider: 05/10/21 16:32 Source: patient Mode of arrival: Ambulatory Limitations: No Limitations - History of Present Illness Initial Comments: The patient was evaluated in the emergency department for symptoms described in the history of present illness. He/she was evaluated in the context of the global COVID-19 pandemic, which necessitated consideration that the patient might be at risk for infection with the virus that causes COVID-19. Institutional protocols and algorithms that pertain to the evaluation of patients at risk for COVID-19 are in a state of rapid change based on information released by regulatory bodies including the CDC and federal and state organizations. These policies and algorithms were followed during the patient's care in the emergency department. Please note that these policies, procedures and recommendations changed on a rapid basis. 41-year-old -Dominican male comes in for left fistular bleeding started this morning. Patient reports that he is end-stage renal disease and gets dialysis Thursday and Thursday. Patient states he was able to complete dialysis on Thursday. Patient states that he had his dressing changed by dialysis nurse. Patient comes in with dressing saturated. Patient denies any pain no sh ortness of breathing no chest pain no fever no chills no dizziness. Patient states he is on multiple medication for his blood pressure. States that he had surgery done yesterday by . -: This morning Extremity Location: Left: Arm (Fistular) Associated Symptoms: none Treatments Prior to Arrival: bandage - Related Data Previous Rx's Medication Instructions Recorded Last Taken Type Aspirin [Aspirin BABY CHEW TAB] 81 mg PO QDAY #30 tab.chew 11/27/20 05/09/21 10:30 Rx NIFEdipine XL [Procardia Xl] 90 mg PO Q12HR #60 tablet 11/27/20 05/09/21 10:30 Rx carvediloL [Coreg] 25 mg PO BID #60 11/27/20 05/09/21 10:30 Rx cloNIDine [Catapres] 0.2 mg PO TID #90 11/27/20 05/09/21 10:30 Rx hydrALAZINE [Apresoline TAB] 100 mg PO TID #90 tab 11/27/20 05/09/21 10:30 Rx minoxidiL [Loniten] 2.5 mg PO QDAY #30 tablet 11/27/20 05/09/21 10:30 Rx oxyCODONE /ACETAMINOPHEN [Percocet 1 tab PO Q6HR PRN #24 tablet 05/09/21 Unknown Rx 5/325 mg] Allergies Allergy/AdvReac Type Severity Reaction Status Date / Time morphine Allergy Nausea Verified 05/06/21 12:59 ED Review of Systems ROS: Stated complaint: BLEEDING FROM INCISION Other details as noted in HPI Comment: All other systems reviewed and negative ED Past Medical Hx - Past Medical History Previous Medical History?: Yes Hx Hypertension: Yes (took all antihypertensives this morning) Hx Heart Attack/AMI: No Hx Liver Disease: No Hx HIV: No - Surgical History Past Surgical History?: No - Social History Smoking Status: Former Smoker - Medications Home Medications: Home Medications Medication Instructions Recorded Confirmed Last Taken Type Aspirin [Aspirin BABY CHEW TAB] 81 mg PO QDAY #30 tab.chew 11/27/20 05/06/21 05/09/21 10:30 Rx NIFEdipine XL [Procardia Xl] 90 mg PO Q12HR #60 tablet 11/27/20 05/06/21 05/09/21 10:30 Rx carvediloL [Coreg] 25 mg PO BID #60 11/27/20 05/06/21 05/09/21 10:30 Rx cloNIDine [Catapres] 0.2 mg PO TID #90 11/27/20 05/06/21 05/09/21 10:30 Rx hydrALAZINE [Apresoline TAB] 100 mg PO TID #90 tab 11/27/20 05/06/21 05/09/21 10:30 Rx minoxidiL [Loniten] 2.5 mg PO QDAY #30 tablet 11/27/20 05/06/21 05/09/21 10:30 Rx oxyCODONE /ACETAMINOPHEN [Percocet 1 tab PO Q6HR PRN #24 tablet 05/09/21 Unknown Rx 5/325 mg] ED Physical Exam - General Limitations: No Limitations General appearance: alert, in no apparent distress - Head Head exam: Present: atraumatic, normocephalic - Eye Eye exam: Present: normal appearance - ENT ENT exam: Present: mucous membranes moist - Neck Neck exam: Present: normal inspection, full ROM - Respiratory Respiratory exam: Absent: respiratory distress, accessory muscle use - Cardiovascular Cardiovascular Exam: Present: regular rate - Extremities Exam Extremities exam: Present: normal inspection, full ROM - Back Exam Back exam: Present: normal inspection, full ROM - Neurological Exam Neurological exam: Present: alert, oriented X3, normal gait - Psychiatric Psychiatric exam: Present: normal affect, normal mood - Skin Skin exam: Present: warm, dry, other (Right upper arm surgical wound silver are in place does not look infected mild oozing of blood from one side of the staple nontender) ED Course Vital Signs 05/10/21 15:25 Temperature 99.4 F Pulse Rate 94 H Respiratory 16 Rate Blood Pressure 158/93 [Left] O2 Sat by Pulse 95 Oximetry ED Medical Decision Making - Medical Decision Making 41-year-old -Dominican male comes in for left fistular bleeding started this morning. Patient reports that he is end-stage renal disease and gets dialysis Thursday and Thursday. Patient states he was able to complete dialysis on Thursday. Patient states that he had his dressing changed by dialysis nurse. Patient comes in with dressing saturated. Patient denies any pain no shortness of breathing no chest pain no fever no chills no dizziness. Patient states he is on multiple medication for his blood pressure. States that he had surgery done yesterday by . Bandage was changed by lubrication technician. Site is stable only mild oozing. Patient has no neurological deficits no dizziness. Discussed with patient to change dressing apply pressure and follow-up with his dialysis provider and surgeon. Patient verbalized understanding Critical care attestation.: If time is entered above; I have spent that time in minutes in the direct care of this critically ill patient, excluding procedure time. ED Disposition Clinical Impression: Surgical arteriovenous fistula hemorrhage Disposition: HOME / SELF CARE / HOMELESS Is pt being admited?: No Does the pt Need Aspirin: No Condition: Stable Additional Instructions: Keep bandage clean and dry. Follow-up with your kidney provider and your vascular doctor. Referrals: [facility] [Other] - 3-5 Days Forms: Work/School Release Form(ED)
[2021-05-10 16:49] VITALS: BP 148/93
== END 2021-05-10 16:51 | disposition home or self-care (01) ==
LOC: ED 15:13
DX: T82.838A Hemorrhage due to vascular prosthetic devices, implants and grafts, initial encounter (principal); I10 Essential (primary) hypertension; Z87.891 Personal history of nicotine dependence; Z88.5 Allergy status to narcotic agent; Y82.8 Other medical devices associated with adverse incidents; Y92.89 Other specified places as the place of occurrence of the external cause
CPT/HCPCS: 99282

== ENCOUNTER 2021-07-11 16:50 | Emergency (ER) | payer SELFPAY ==
[2021-07-11 19:00] LABS: Basophils # (Auto) 0.1 K/mm3 (0.0-0.1); Eosinophils # (Auto) 0.4 K/mm3 (0.0-0.4); Eosinophils % (Auto) 3.7 % (0.0-4.3); Hematocrit 29.8 % (35.5-45.6); Hemoglobin 9.8 gm/dl (11.8-15.2); Lymphocytes # (Auto) 2.3 K/mm3 (1.2-5.4); Lymphocytes % (Auto) 19.6 % (13.4-35.0); Mean Corpuscular HGB Conc 33 % (32-34); Mean Corpuscular Volume 89 fl (84-94); Monocytes # (Auto) 1.3 K/mm3 (0.0-0.8); Monocytes % (Auto) 10.8 % (0.0-7.3); Platelet Count 240 K/mm3 (140-440); Red Blood Count 3.36 M/mm3 (3.65-5.03); Red Cell Distribution Width 14.3 % (13.2-15.2)
--- NOTE | 2021-07-11 19:15 | Emergency Department Report ---
ED Medical Clearance HPI - General Chief complaint: Medical Clearance Stated complaint: PHYSICAL ASSESSMENT Time Seen by Provider: 07/11/21 18:15 Source: patient Mode of arrival: Ambulatory - History of Present Illness Initial comments: Patient is a 41-year-old male presents to the emergency room stating that he needs medical clearance to return to his dialysis clinic tomorrow. He states that he needs to have labs performed. Patient states that he went on vacation and missed 2 days of dialysis. He states that he last went to dialysis on 07/05/2021. He denies any physical complaints at this time and states that he just needs labs to be performed so he can go to dialysis tomorrow 07/12/21. He denies any shortness of breath or chest pain. Allergy to morphine Home medications: Previous Rx's Medication Instructions Recorded Last Taken Type Aspirin [Aspirin BABY CHEW TAB] 81 mg PO QDAY #30 tab.chew 11/27/20 05/09/21 10:30 Rx NIFEdipine XL [Procardia Xl] 90 mg PO Q12HR #60 tablet 11/27/20 05/09/21 10:30 Rx carvediloL [Coreg] 25 mg PO BID #60 11/27/20 05/09/21 10:30 Rx cloNIDine [Catapres] 0.2 mg PO TID #90 11/27/20 05/09/21 10:30 Rx hydrALAZINE [Apresoline TAB] 100 mg PO TID #90 tab 11/27/20 05/09/21 10:30 Rx minoxidiL [Loniten] 2.5 mg PO QDAY #30 tablet 11/27/20 05/09/21 10:30 Rx oxyCODONE /ACETAMINOPHEN [Percocet 1 tab PO Q6HR PRN #24 tablet 05/09/21 Unknown Rx 5/325 mg] Allergies/Adverse reactions: Allergies Allergy/AdvReac Type Severity Reaction Status Date / Time morphine Allergy Nausea Verified 05/06/21 12:59 ED Review of Systems ROS: Stated complaint: PHYSICAL ASSESSMENT Other details as noted in HPI Comment: All other systems reviewed and negative ED Past Medical Hx - Past Medical History Hx Hypertension: Yes (took all antihypertensives this morning) Hx Heart Attack/AMI: No Hx Liver Disease: No Hx HIV: No - Social History Smoking Status: Former Smoker - Medications Home Medications: Home Medications Medication Instructions Recorded Confirmed Last Taken Type Aspirin [Aspirin BABY CHEW TAB] 81 mg PO QDAY #30 tab.chew 11/27/20 05/06/21 05/09/21 10:30 Rx NIFEdipine XL [Procardia Xl] 90 mg PO Q12HR #60 tablet 11/27/20 05/06/21 05/09/21 10:30 Rx carvediloL [Coreg] 25 mg PO BID #60 11/27/20 05/06/21 05/09/21 10:30 Rx cloNIDine [Catapres] 0.2 mg PO TID #90 11/27/20 05/06/21 05/09/21 10:30 Rx hydrALAZINE [Apresoline TAB] 100 mg PO TID #90 tab 11/27/20 05/06/21 05/09/21 10:30 Rx minoxidiL [Loniten] 2.5 mg PO QDAY #30 tablet 11/27/20 05/06/21 05/09/21 10:30 Rx oxyCODONE /ACETAMINOPHEN [Percocet 1 tab PO Q6HR PRN #24 tablet 05/09/21 Unkn own Rx 5/325 mg] ED Physical Exam - General Limitations: No Limitations General appearance: alert, in no apparent distress - Head Head exam: Present: atraumatic, normocephalic - Eye Eye exam: Present: normal appearance - ENT ENT exam: Present: mucous membranes moist - Respiratory Respiratory exam: Present: normal lung sounds bilaterally. Absent: respiratory distress, wheezes, rales, rhonchi, chest wall tenderness, accessory muscle use, decreased breath sounds, prolonged expiratory - Cardiovascular Cardiovascular Exam: Present: regular rate, normal rhythm, normal heart sounds, other (right AV graft with palpable thrill). Absent: systolic murmur, diastolic murmur, rubs, gallop - Neurological Exam Neurological exam: Present: alert, oriented X3 - Psychiatric Psychiatric exam: Present: normal affect, normal mood - Skin Skin exam: Present: warm, dry, intact ED Course Vital Signs 07/11/21 07/11/21 17:10 19: Temperature 98.1 F 98.0 F Pulse Rate 75 66 Respiratory 19 16 Rate Blood Pressure 128/77 125/74 [Left] O2 Sat by Pulse 98 100 Oximetry ED Medical Decision Making - Lab Data Result diagrams: 07/11/21 18:44 07/11/21 18:44 Lab Results 07/11/21 07/11/21 Range/Units 18:44 18:44 WBC 11.9 H (4.5-11.0) K/mm3 RBC 3.36 L (3.65-5.03) M/mm3 Hgb 9.8 L (11.8-15.2) gm/dl Hct 29.8 L (35.5-45.6) % MCV 89 (84-94) fl MCH 29 (28-32) pg MCHC 33 (32-34) % RDW 14.3 (13.2-15.2) % Plt Count 240 (140-440) K/mm3 Lymph % (Auto) 19.6 (13.4-35.0) % [place] % (Auto) 10.8 H (0.0-7.3) % Eos % (Auto) 3.7 (0.0-4.3) % Baso % (Auto) 1.0 (0.0-1.8) % Lymph # (Auto) 2.3 (1.2-5.4) K/mm3 [place] # (Auto) 1.3 H (0.0-0.8) K/mm3 Eos # (Auto) 0.4 (0.0-0.4) K/mm3 Baso # (Auto) 0.1 (0.0-0.1) K/mm3 Seg Neutrophils % 64.9 (40.0-70.0) % Seg Neutrophils # 7.7 (1.8-7.7) K/mm3 Sodium 137 (137-145) mmol/L Potassium 4.5 (3.6-5.0) mmol/L Chloride 103.6 (98-107) mmol/L Carbon Dioxide 16 L (22-30) mmol/L Anion Gap 22 mmol/L BUN 73 H (9-20) mg/dL Creatinine 10.5 H (0.8-1.3) mg/dL Estimated GFR 7 ml/min BUN/Creatinine Ratio 7 % Glucose 105 H (75-100) mg/dL Calcium 9.2 (8.4-10.2) mg/dL Total Bilirubin 0.50 (0.1-1.2) mg/dL AST 12 (5-40) units/L ALT 30 (7-56) units/L Alkaline Phosphatase 106 (35-129) units/L Total Protein 7.1 (6.3-8.2) g/dL Albumin 3.9 (3.9-5) g/dL Albumin/Globulin Ratio 1.2 % - Medical Decision Making Patient is a 41-year-old male presents to the emergency room stating that he needs medical clearance to return to his dialysis clinic tomorrow. He states that he needs to have labs performed. Patient states that he went on vacation and missed 2 days of dialysis. He states that he last went to dialysis on 07/05/2021. He denies any physical complaints at this time and states that he just needs labs to be performed so he can go to dialysis tomorrow 07/12/21. He denies any shortness of breath or chest pain. Allergy to morphine. Vitals are normal. Labs are stable. No hyperkalemia. Patient given print out of his labs. 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 Please follow- up with your primary care doctor. Please go to your regularly scheduled dialysis with appointment tomorrow 07/12/21. Please take your lab results with you. Return to emergency room for any new or worsening symptoms. ED Disposition Clinical Impression: ESRD (end stage renal disease) Disposition: 01 HOME / SELF CARE / HOMELESS Is pt being admited?: No Does the pt Need Aspirin: No Condition: Stable Instructions: Dialysis Additional Instructions: Please follow-up with your [employer] operator. Please follow-up with your primary care doctor. Please go to your regularly scheduled dialysis with appointment tomorrow 07/12/21. Please take your lab results with you. Return to emergency room for any new or worsening symptoms. Referrals: PRIMARY CARE, [Primary Care Provider] - 3-5 Days your, [employer] operator [Other] - 3-5 Days Time of Disposition: 19:25 Print Language: LATVIAN
[2021-07-11 19:16] LABS: Albumin 3.9 g/dL (3.9-5); Calcium 9.2 mg/dL (8.4-10.2)
[2021-07-11 19:25] VITALS: BP 125/74
== END 2021-07-11 19:31 | disposition home or self-care (01) ==
LOC: ED 16:50
DX: I12.0 Hypertensive chronic kidney disease with stage 5 chronic kidney disease or end stage renal disease (principal); N18.6 End stage renal disease; Z99.2 Dependence on renal dialysis; Z87.891 Personal history of nicotine dependence; Z88.5 Allergy status to narcotic agent; Z79.899 Other long term (current) drug therapy; Z79.82 Long term (current) use of aspirin
CPT/HCPCS: 36415; 80053; 85025; 99283

== ENCOUNTER 2021-12-01 19:54 | Emergency (ER) | payer MEDICARE ==
--- NOTE | 2021-12-01 23:58 | Emergency Department Report ---
ED Medical Clearance HPI - General Chief complaint: Medical Clearance Stated complaint: DIALYSIS CLEARANCE Time Seen by Provider: 12/01/21 23:55 Source: patient Mode of arrival: Ambulatory - History of Present Illness Initial comments: 41-year-old black male with a past medical history of hypertension and end-stage renal disease on hemodialysis presents to the emergency department for medical clearance. He states that he missed his last 2 dialysis days secondary to being out of town and is scheduled to go back tomorrow. He states that his center requires for him to be medically cleared and have someone states that he has no dependent edema before they will accept him we will do dialysis tomorrow. Patient denies chest pain, shortness of breath, nausea, vomiting, dizziness. He states that he feels just fine just needs to be able to go to dialysis tomorrow. Complaint: medical clearance request -: Gradual Reason for Medical Clearance: other (To go back to dialysis) Place: home Alledged Intoxication: No Compliant with Home Medications: Yes Traumatic Symptoms: denies traumatic injury Associated Symptoms: denies: chest pain, shortness of breath, palpitations, di aphoresis, confusion, cough, fever/chills, headaches, anorexia, malaise, nausea/vomiting, rash, seizure, syncope, weakness Treatments Prior to Arrival: none Home medications: Previous Rx's Medication Instructions Recorded Last Taken Type Aspirin [Aspirin BABY CHEW TAB] 81 mg PO QDAY #30 tab.chew 11/27/20 05/09/21 10:30 Rx NIFEdipine XL [Procardia Xl] 90 mg PO Q12HR #60 tablet 11/27/20 05/09/21 10:30 Rx carvediloL [Coreg] 25 mg PO BID #60 11/27/20 05/09/21 10:30 Rx cloNIDine [Catapres] 0.2 mg PO TID #90 11/27/20 05/09/21 10:30 Rx hydrALAZINE [Apresoline TAB] 100 mg PO TID #90 tab 11/27/20 05/09/21 10:30 Rx minoxidiL [Loniten] 2.5 mg PO QDAY #30 tablet 11/27/20 05/09/21 10:30 Rx oxyCODONE /ACETAMINOPHEN [Percocet 1 tab PO Q6HR PRN #24 tablet 05/09/21 Unknown Rx 5/325 mg] Allergies/Adverse reactions: Allergies Allergy/AdvReac Type Severity Reaction Status Date / Time morphine Allergy Nausea Verified 05/06/21 12:59 ED Review of Systems ROS: Stated complaint: DIALYSIS CLEARANCE Other details as noted in HPI Comment: All other systems reviewed and negative Constitutional: denies: chills, fever Respiratory: denies: orthopnea, shortness of breath, SOB with exertion, SOB at rest Cardiovascular: denies: chest pain, palpitations, dyspnea on exertion, orthopnea, edema, syncope, paroxysmal nocturnal dyspnea Gastrointestinal: denies: abdominal pain, nausea, vomiting Musculoskeletal: denies: back pain Skin: denies: rash, lesions Neurological: denies: headache, weakness ED Past Medical Hx - Past Medical History Hx Hypertension: Yes (took all antihypertensives this morning) Hx Heart Attack/AMI: No Hx Liver Disease: No Hx HIV: No - Social History Smoking Status: Former Smoker - Medications Home Medications: Home Medications Medication Instructions Recorded Confirmed Last Taken Type Aspirin [Aspirin BABY CHEW TAB] 81 mg PO QDAY #30 tab.chew 11/27/20 05/06/21 05/09/21 10:30 Rx NIFEdipine XL [Procardia Xl] 90 mg PO Q12HR #60 tablet 11/27/20 05/06/21 05/09/21 10:30 Rx carvediloL [Coreg] 25 mg PO BID #60 11/27/20 05/06/21 05/09/21 10:30 Rx cloNIDine [Catapres] 0.2 mg PO TID #90 11/27/20 05/06/21 05/09/21 10:30 Rx hydrALAZINE [Apresoline TAB] 100 mg PO TID #90 tab 11/27/20 05/06/21 05/09/21 10:30 Rx minoxidiL [Loniten] 2.5 mg PO QDAY #30 tablet 11/27/20 05/06/21 05/09/21 10:30 Rx oxyCODONE /ACETAMINOPHEN [Percocet 1 tab PO Q6HR PRN #24 tablet 05/09/21 Unknown Rx 5/325 mg] ED Physical Exam - General Limitations: No Limitations General appearance: alert, in no apparent distress - Head Head exam: Present: atraumatic, normocephalic - Eye Eye exam: Present: normal appearance. Absent: conjunctival injection - Neck Neck exam: Present: normal inspection. Absent: tenderness, lymphadenopathy - Respiratory Respiratory exam: Present: normal lung sounds bilaterally. Absent: respiratory distress, wheezes, rales, rhonchi, stridor, chest wall tenderness - Cardiovascular Cardiovascular Exam: Present: bradycardia, normal heart sounds - GI/Abdominal GI/Abdominal exam: Present: soft, normal bowel sounds. Absent: distended, tenderness, guarding, rebound, rigid - Extremities Exam Extremities exam: Present: normal inspection, normal capillary refill. Absent: tenderness, pedal edema, joint swelling, calf tenderness - Back Exam Back exam: Present: normal inspection. Absent: CVA tenderness (R), CVA tenderness (L), vertebral tenderness - Neurological Exam Neurological exam: Present: alert, oriented X3 - Psychiatric Psychiatric exam: Present: normal affect, normal mood - Skin Skin exam: Present: warm, dry, intact, normal color ED Course Vital Signs 12/01/21 12/02/21 22:42 00:12 Temperature 98.0 F Pulse Rate 56 L 62 Respiratory 18 12 Rate Blood Pressure 125/82 130/86 [Left] O2 Sat by Pulse 100 100 Oximetry ED Medical Decision Making - Medical Decision Making 41-year-old black male with a past medical history of hypertension and end-stage renal disease on hemodialysis presents to the emergency department for medical clearance. He states that he missed his last 2 dialysis days secondary to being out of town and is scheduled to go back tomorrow. He states that his center requires for him to be medically cleared and have someone states that he has no dependent edema before they will accept him we will do dialysis tomorrow. Patient denies chest pain, shortness of breath, nausea, vomiting, dizziness. He states that he feels just fine just needs to be able to go to dialysis tomorrow. No gross abnormalities noted on exam, and patient is without any complaints of at this time. Patient does not have any noted dependent edema and lungs are clear to auscultation. Patient will be given medical clearance to go back for HD in the morning. He is advised to follow-up at HD clinic as planned and follow-up with primary care provider for further evaluation and management. He verbalized understanding of and agreement with plan of care. ED Disposition Clinical Impression: General medical exam Disposition: HOME / SELF CARE / HOMELESS Is pt being admited?: No Does the pt Need Aspirin: No Condition: Stable Instructions: Eating Plan for Dialysis, Hemodialysis, [id number] Additional Instructions: Return to dialysis tomorrow as planned. Follow-up with primary care provider for further management and evaluation. Return to the emergency department as needed. Referrals: PRIMARY CARE, [Primary Care Provider] - 3-5 Days Forms: Work/School Release Form(ED) Time of Disposition: 23:58
[2021-12-02 00:12] VITALS: BP 130/86
== END 2021-12-02 00:35 | disposition home or self-care (01) ==
LOC: ED 19:54
DX: Z00.00 Encounter for general adult medical examination without abnormal findings (principal); I10 Essential (primary) hypertension; Z91.09 Other allergy status, other than to drugs and biological substances
CPT/HCPCS: 99282